=== PATIENT | female | born 1955 | race Caucasian/White ===

== ENCOUNTER → 2018-10-18 09:52 | Outpatient (CLI) | payer OTHER, SELFPAY | PROVIDERS: PCP Family Medicine; Visit Provider Physician Assistant | DX: J02.9 Acute pharyngitis, unspecified (principal) | CPT/HCPCS: 87070 ==

== ENCOUNTER → 2020-05-17 10:48 | Outpatient (CLI) | payer OTHER, SELFPAY ==
--- NOTE | 2020-05-17 10:50 | DI.RAD.S_ITS ---
PROCEDURE: XR ANKLE RT MIN 3V INDICATIONS: right ankle pain TECHNIQUE: 3 views of the ankle were acquired. COMPARISON: None. FINDINGS: Bones: There is a subtle transversely oriented lucency through the distal tip of the right fibula with moderate overlying soft tissue edema. No other fractures or dislocations. Ankle mortise is normally aligned. No suspicious bony lesions. Base of fifth metatarsal appears intact. Soft tissues: No tibiotalar joint effusion. Achilles tendon appears normal. IMPRESSION: Possible nondisplaced distal fibular fracture. Dictated by: Honorio Gasca M.D. on 05/17/2020 at 11:14 Approved by: Honorio Gasca M.D. on 05/17/2020 at 11:16
== END ==
PROVIDERS: Referring Provider Physician Assistant; Visit Provider Physician Assistant
DX: M25.571 Pain in right ankle and joints of right foot (principal)
CPT/HCPCS: 73610

== ENCOUNTER → 2021-08-12 10:01 | Outpatient (CLI) | payer MEDICARE, SELFPAY ==
[2021-08-12 11:48] LABS: COVID19 -Nasal RAPID Negative (Negative)
== END ==
PROVIDERS: Visit Provider Nurse Practitioner Family
DX: Z20.822 Contact with and (suspected) exposure to COVID-19 (principal)
CPT/HCPCS: 87635

== ENCOUNTER 2022-11-18 14:04 | Inpatient (IN) | payer MEDICARE, SELFPAY ==
[2022-11-18] VITALS (9 sets, daily range): BP systolic 115–155; BP diastolic 73–95; PULSE 80–93; RESP 12–23; TEMP 36.4–36.9; O2SAT 94–99; BMI 24.7
--- NOTE | 2022-11-18 14:15 | DI.RAD.S_ITS ---
PROCEDURE: XR CHEST 1V INDICATIONS: chest pain TECHNIQUE: One view of the chest was acquired. COMPARISON: None. FINDINGS: Surgical changes and devices: None. Lungs and pleura: Lungs are clear. No pleural effusions or pneumothorax. Mediastinum: Mediastinal contours appear normal. Heart size is normal. Bones and chest wall: No suspicious bony lesions. Overlying soft tissues appear unremarkable. IMPRESSION: No acute process. Dictated by: Ana Valadez M.D. on 11/18/2022 at 14:57 Approved by: Ana Valadez M.D. on 11/18/2022 at 14:57
[2022-11-18 14:42] LABS: Add Manual Diff / Slide Review NO; Basophils Absolute Auto 0 /uL (0-100); Basophils Percent Auto 0.7 % (0-2); Eosinophils Absolute Auto 0 /uL (0-450); Eosinophils Percent Auto 0.6 % (2-4); Hematocrit 38.9 % (36-46); Hemoglobin 12.8 g/dL (12.0-16.0); Lymphocytes Absolute Auto 2000 /uL (1100-4500); Lymphocytes Percent Auto 30.9 % (25-40); Mean Corpuscular HGB Conc 32.8 % (30-36); Mean Corpuscular Hemoglobin 29.1 PG (26-34); Mean Corpuscular Volume 88.7 fL (80-100); Monocytes Absolute Auto 400 /uL (0-900); Monocytes Percent Auto 6.5 % (3-14); Neutrophils Absolute Auto 4000 /uL (1500-7000); Neutrophils Percent Auto 61.3 % (50-75); Platelet Count 315 X10^3/uL (150-400); Red Blood Cell Count 4.38 X10^6/uL (4.0-5.2); Red Cell Distribution Width 14.2 % (11.6-14.8); White Blood Cell Count 6.6 X10^3/uL (4.5-11.0)
--- NOTE | 2022-11-18 14:45 | ED.CHESTPAIN ---
HPI - Chest Pain General Chief Complaint: Chest Pain Stated Complaint: chest pain squeezing Time Seen by Provider: 11/18/22 14:23 Source: patient Mode of arrival: Ambulatory Limitations: no limitations History of Present Illness HPI narrative: Patient is a 67-year-old female who is here for evaluation of epigastric and retrosternal chest squeezing discomfort. States the symptoms started earlier today after she took some vitamins. Said some nausea no vomiting. No problems breathing. No abdominal pain. She states that it feels like that the pills are stuck in the bottom of her throat. She is never had anything like this in the past. Does not have a history of reflux disease. Does not drink alcohol. Occasionally takes anti-inflammatories but nothing recent. Related Data Home Medications Medication Instructions Recorded Confirmed No Known Home Medications 05/26/22 05/26/22 Allergies Allergy/AdvReac Type Severity Reaction Status Date / Time No Known Drug Allergies Allergy Unverified 05/26/22 14:20 Review of Systems Cardiovascular Cardiovascular: Reports system reviewed and no additional complaints, except as documented Respiratory Respiratory: Reports system reviewed and no additional complaints, except as documented Gastrointestinal Gastrointestinal: Reports system reviewed and no additional complaints, except as documented Genitourinary Genitourinary: Reports system reviewed and no additional complaints, except as documented Integumentary/Breasts Skin/Breast: Reports system reviewed and no additional complaints, except as documented Hematologic/Lymphatic On Anticoagulants: No Patient History Social History Smoking Status: Never smoker Smoking Status: Never smoker Exam Initial Vital Signs Initial Vital Signs: Vital Signs Temperature 98.4 F 11/18/22 14:16 Pulse Rate 93 H 11/18/22 14:16 Respiratory Rate 16 11/18/22 14:16 Blood Pressure 155/95 H 11/18/22 14:16 Pulse Oximetry 96 11/18/22 14:16 Oxygen Delivery Method 11/18/22 14:16 Const General: cooperative, healthy appearing and comfortable [facility] Head: normal to inspection and normocephalic Resp Effort & Inspection: normal respiratory effort Auscultation: clear to auscultation bilaterally Cardio Rate: regular rate Rhythm: regular rhythm GI Inspection: normal to inspection and non-distended Palpation: soft, No firm and No tender Skin General: no rashes or lesions noted Neuro General: patient alert, patient awake and moves all extremities Extrem General: normal to inspection and capillary refill normal Psych Appearance: grossly normal and well kempt Course Orders Ordered: ED Orders 11/18/22 14:15 XR chest 1V Stat 11/18/22 14:19 EKG-12 Lead Stat 11/18/22 14:27 Complete Blood Count AUTO DIFF Stat Comprehensive Metabolic Panel Stat Lipase Stat Magnesium Stat Partial Thromboplastin Time Stat Prothrombin Time INR Stat Troponin & CK Cardiac Panel Stat 11/18/22 15:09 CT abdomen pelvis w con Stat 11/18/22 15:15 Type and Screen Stat 11/18/22 16:07 Consult to General Surgery Stat Discontinued Medications Al Hydrox/Mg Hydrox/Simethicone 20 ml/ Lidocaine HCl 15 ml 0 ml PO NOW ONE Stop: 11/18/22 14:47 Last Admin: 11/18/22 15:15 Dose: Not Given Documented By: TONEY Ondansetron HCl (Ondansetron 4 Mg/2 Ml Inj) 4 mg IV NOW ONE Stop: 11/18/22 15:10 Last Admin: 11/18/22 15:15 Dose: 4 mg Documented By: TONEY Pantoprazole Sodium (Pantoprazole 40 Mg Vial) 40 mg IV NOW ONE Stop: 11/18/22 15:10 Last Admin: 11/18/22 15:15 Dose: 40 mg Documented By: TONEY Vital Signs Vital signs: Vital Signs - 8 hr 11/18/22 14:16 11/18/22 15:46 11/18/22 15:49 Temperature 98.4 F Pulse Rate 93 H 86 84 Respiratory Rate 16 23 13 Blood Pressure 155/95 H Pulse Oximetry 96 99 98 Oxygen Delivery Method Room Air 11/18/22 15:49 11/18/22 16:00 11/18/22 16:00 Temperature Pulse Rate 84 Respiratory Rate 20 Blood Pressure 145/83 H 153/81 H Pulse Oximetry 97 Oxygen Delivery Method Room Air MDM - Chest Pain Differential Diagnosis Differential diagnosis: Likely other (Esophageal foreign body, ulcerations, Maddi-Phan tears, ACS) Condition is:: Well Controlled Discussed with:: Hospitalist, general surgeon Lab Data Attestation: I reviewed the patient's lab results. Result diagrams: 11/18/22 14:27 11/18/22 14:27 Labs: Lab Results 11/18/22 11/18/22 11/18/22 Range/Units 14:27 14:27 14:27 WBC 6.6 (4.5-11.0) X10^3/uL RBC 4.38 (4.0-5.2) X10^6/uL Hgb 12.8 (12.0-16.0) g/dL Hct 38.9 (36-46) % MCV 88.7 (80-100) fL MCH 29.1 (26-34) PG MCHC 32.8 (30-36) % RDW 14.2 (11.6-14.8) % Plt Count 315 (150-400) X10^3/uL Neut % (Auto) 61.3 (50-75) % Lymph % (Auto) 30.9 (25-40) % [place] % (Auto) 6.5 (3-14) % Eos % (Auto) 0.6 L (2-4) % Baso % (Auto) 0.7 (0-2) % Neut # (Auto) 4000 (3583-2196) /uL Lymph # (Auto) 2000 (8550-0653) /uL [place] # (Auto) 400 (0-900) /uL Eos # (Auto) 0 (0-450) /uL Baso # (Auto) 0 (0-100) /uL PT 11.9 (10.1-12.7) SECONDS INR 1.0 (0.9-1.3) APTT 28 (26-36) SECONDS Sodium 136 L (137-145) mmol/L Potassium 3.8 (3.4-5.1) mmol/L Chloride 100 (98-107) mmol/L Carbon Dioxide 25 (22-32) mmol/L BUN 8 (7-17) mg/dL Creatinine 0.56 (0.52-1.04) mg/dL Estimated GFR > 60 (>60) mL/min BUN/Creatinine Ratio 14.3 (6-22) Glucose 106 (80-110) mg/dL Calcium 8.8 (8.4-10.2) mg/dL Magnesium 1.9 (1.6-2.3) mg/dL Total Bilirubin 0.3 (0.2-1.3) mg/dL AST 25 (14-36) IU/L ALT 23 (<35) IU/L Alkaline Phosphatase 127 H (38-126) U/L Total Creatine Kinase 66 (30-135) U/L CK-MB (CK-2) TNP CK-MB (CK-2) Rel Index TNP Troponin I < 0.012 (0.01-0.034) ng/mL Total Protein 7.4 (6.3-8.2) g/dL Albumin 4.4 (3.5-5.0) g/dL Globulin 3.0 (1.7-4.1) g/dL Albumin/Globulin Ratio 1.5 (1.0-2.8) Lipase 75 (23-300) U/L Blood Type Antibody Screen 11/18/22 Range/Units 15:15 WBC (4.5-11.0) X10^3/uL RBC (4.0-5.2) X10^6/uL Hgb (12.0-16.0) g/dL Hct (36-46) % MCV (80-100) fL MCH (26-34) PG MCHC (30-36) % RDW (11.6-14.8) % Plt Count (150-400) X10^3/uL Neut % (Auto) (50-75) % Lymph % (Auto) (25-40) % [place] % (Auto) (3-14) % Eos % (Auto) (2-4) % Baso % (Auto) (0-2) % Neut # (Auto) (4144-7124) /uL Lymph # (Auto) (5527-3924) /uL [place] # (Auto) (0-900) /uL Eos # (Auto) (0-450) /uL Baso # (Auto) (0-100) /uL PT (10.1-12.7) SECONDS INR (0.9-1.3) APTT (26-36) SECONDS Sodium (137-145) mmol/L Potassium (3.4-5.1) mmol/L Chloride (98-107) mmol/L Carbon Dioxide (22-32) mmol/L BUN (7-17) mg/dL Creatinine (0.52-1.04) mg/dL Estimated GFR (>60) mL/min BUN/Creatinine Ratio (6-22) Glucose (80-110) mg/dL Calcium (8.4-10.2) mg/dL Magnesium (1.6-2.3) mg/dL Total Bilirubin (0.2-1.3) mg/dL AST (14-36) IU/L ALT (<35) IU/L Alkaline Phosphatase (38-126) U/L Total Creatine Kinase (30-135) U/L CK-MB (CK-2) CK-MB (CK-2) Rel Index Troponin I (0.01-0.034) ng/mL Total Protein (6.3-8.2) g/dL Albumin (3.5-5.0) g/dL Globulin (1.7-4.1) g/dL Albumin/Globulin Ratio (1.0-2.8) Lipase (23-300) U/L Blood Type O Positive Antibody Screen Negative Imaging Data Chest x-ray: Radiologist's Impression: [address] [address] XRay Report Signed Patient: Ammy Diane MR#: [id number] : 1955 Acct:[id number] Age/Sex: 67 / F Date of Service: 11/18/22 Loc: ED Accession Number: [id number] ?? Procedure: XR chest 1V Ordering Provider: Yariel Paige D.O. PROCEDURE:? XR CHEST 1V ? INDICATIONS:? chest pain ? TECHNIQUE:? One view of the chest was acquired.? ? COMPARISON:? None. ? FINDINGS:? ? Surgical changes and devices:? None.? ? Lungs and pleura:? Lungs are clear.? No pleural effusions or pneumothorax.? ? Mediastinum:? Mediastinal contours appear normal.? Heart size is normal.? ? Bones and chest wall:? No suspicious bony lesions.? Overlying soft tissues appear unremarkable.? ? IMPRESSION:? No acute process. ? ? Dictated by: Ana Valadez M.D. on 11/18/2022 at 14:57 ? ? Approved by: Ana Valadez M.D. on 11/18/2022 at 14:57?? CT scan - abdomen/pelvis: Radiologist's Impression: [address] [address] [address] Scan Report Signed Patient: Ammy Diane MR#: [id number] : 1955 Acct:[id number] Age/Sex: 67 / F Date of Service: 11/18/22 Loc: ED Accession Number: [id number] ?? Procedure: CT abdomen pelvis w con Ordering Provider: Yariel Paige D.O. PROCEDURE:? CT ABDOMEN PELVIS W CON ? INDICATIONS:? Vomiting blood ? TECHNIQUE:? After the administration of intravenous contrast, axial sections acquired from the lung bases to the pubic symphysis.? Coronal and sagittal reformats were performed.? For radiation dose reduction, the following was used:? automated exposure control, adjustment of mA and/or kV according to patient size.? ? COMPARISON:? None. ? FINDINGS:? Image quality:? Excellent.? ? Lung bases:? Unremarkable. Heart:? No significant findings. ? ABDOMEN: Liver:? Unremarkable.? ? Gallbladder:? Is grossly unremarkable? ? Biliary ducts:? Unremarkable.? ? Pancreas:? Unremarkable.? ? Spleen:? Unremarkable.? ? Adrenal Glands:? Unremarkable.? ? Kidneys and Ureters:? Unremarkable.? ? ? Stomach and Bowel:? There is moderate diffuse distension of the esophagus.? Stomach, small bowel loops, and colon are unremarkable.? Appendix is not seen.? No evidence of appendicitis. Peritoneum:? No abnormal intraperitoneal fluid.? No free air.? ? Ventral Wall: ? No hernias.? Abdominal Nodes:? No retroperitoneal or mesenteric adenopathy by size criteria.? Vessels:? Aorta and inferior vena cava are normal in size.? ? PELVIS: Pelvic Organs:? Unremarkable.? ? Bladder:? Unremarkable.? ? Pelvic Nodes: No enlarged lymph nodes.? Miscellaneous: No hernias are seen. ? ? ? Bones:? Unremarkable.? IMPRESSION:? 1. Esophageal distension.? Distal esophageal stricture/malignancy may be present.? Further assessment with endoscopy is recommended. 2. Appendix not seen.? No evidence of appendicitis.? ? ? Dictated by: Ana Valadez M.D. on 11/18/2022 at 15:38 ? ? Approved by: Ana Valadez M.D. on 11/18/2022 at 15:4 ECG Data Attestation: I personally reviewed and interpreted this ECG as follows: Interpretation: Sinus rhythm Ventricular rate 88 Normal axis Normal QRS Normal QTC Nonspecific ST T wave changes MDM Narrative Medical decision making narrative: Patient's symptoms seem to be localized retrosternally and also in the epigastric region. During her initial workup a GI cocktail was ordered for her however prior to administering this medication she did have an episode of hematemesis. It was bright red blood and also clots. She states she felt better afterwards but symptoms started to return. CT scan shows strictures of the distal esophagus. Patient denies any history of alcohol use. There are no signs of any varices. Only occasionally uses nonsteroidal anti-inflammatories. Is not on anticoagulation. She is not having problems breathing. The blood was clearly from vomit and not from coughing. Vital signs are unremarkable. Was given Protonix. I did discuss the case with Dr. Carranza with General surgery who recommended the patient be admitted to the medicine service for an upper endoscopy. I did discuss this with the patient who expressed understanding and agrees. I then discussed the case with Dr. Ram on-call for hospitalist group who will admit for further evaluation and treatment. Discharge Plan Departure Patient Disposition: Admitted as Observation Clinical Impression: Hematemesis Admit Date/Time: 11/18/22 16:20 Admit Provider: Bao Ram
[2022-11-18 14:47] LABS: Prothrombin Time 11.9 SECONDS (10.1-12.7)
[2022-11-18 14:49] LABS: PTT Partial Thromboplastin Tim 28 SECONDS (26-36)
[2022-11-18 14:51] LABS: Alanine Aminotransferase 23 IU/L (<35); Albumin 4.4 g/dL (3.5-5.0); Albumin Globulin Ratio 1.5 (1.0-2.8); Alkaline Phosphatase 127 U/L (38-126); Aspartate Aminotransferase 25 IU/L (14-36); BUN Creatinine Ratio 14.3 (6-22); Bilirubin Total 0.3 mg/dL (0.2-1.3); Blood Urea Nitrogen 8 mg/dL (7-17); Calcium 8.8 mg/dL (8.4-10.2); Carbon Dioxide 25 mmol/L (22-32); Chloride 100 mmol/L (98-107); Creatine Kinase 66 U/L (30-135); Estimated Glomerular Filt Rate > 60 mL/min (>60); Glucose 106 mg/dL (80-110); HEMOLYSIS 18 (0-50); Lipase 75 U/L (23-300); Magnesium 1.9 mg/dL (1.6-2.3); Potassium 3.8 mmol/L (3.4-5.1); Sodium 136 mmol/L (137-145); Total Protein 7.4 g/dL (6.3-8.2)
[2022-11-18 15:03] LABS: Troponin I < 0.012 ng/mL (0.01-0.034)
--- NOTE | 2022-11-18 15:09 | DI.CT.S_ITS ---
PROCEDURE: CT ABDOMEN PELVIS W CON INDICATIONS: Vomiting blood TECHNIQUE: After the administration of intravenous contrast, axial sections acquired from the lung bases to the pubic symphysis. Coronal and sagittal reformats were performed. For radiation dose reduction, the following was used: automated exposure control, adjustment of mA and/or kV according to patient size. COMPARISON: None. FINDINGS: Image quality: Excellent. Lung bases: Unremarkable. Heart: No significant findings. ABDOMEN: Liver: Unremarkable. Gallbladder: Is grossly unremarkable Biliary ducts: Unremarkable. Pancreas: Unremarkable. Spleen: Unremarkable. Adrenal Glands: Unremarkable. Kidneys and Ureters: Unremarkable. Stomach and Bowel: There is moderate diffuse distension of the esophagus. Stomach, small bowel loops, and colon are unremarkable. Appendix is not seen. No evidence of appendicitis. Peritoneum: No abnormal intraperitoneal fluid. No free air. Ventral Wall: No hernias. Abdominal Nodes: No retroperitoneal or mesenteric adenopathy by size criteria. Vessels: Aorta and inferior vena cava are normal in size. PELVIS: Pelvic Organs: Unremarkable. Bladder: Unremarkable. Pelvic Nodes: No enlarged lymph nodes. Miscellaneous: No hernias are seen. Bones: Unremarkable. IMPRESSION: 1. Esophageal distension. Distal esophageal stricture/malignancy may be present. Further assessment with endoscopy is recommended. 2. Appendix not seen. No evidence of appendicitis. Dictated by: Ana Valadez M.D. on 11/18/2022 at 15:38 Approved by: Ana Valadez M.D. on 11/18/2022 at 15:40
[2022-11-18] MEDS: PANTOPRAZOLE 40 MG VIAL IV ×2 (15:15→20:46)
[2022-11-18] MEDS: ONDANSETRON 4 MG/2 ML INJ IV (15:15)
--- NOTE | 2022-11-18 15:16 | PC.NURSE ---
1510: Pts over to RN station reporting that pt nauseated. When at pt's bedside pt started with large amount of bloody emesis. Dr Paige to bedside. Pt moved to rm 7. 2nd IV placed and pt T&S'd and taken to CT.
--- NOTE | 2022-11-18 17:09 | PM.HP.1 ---
History of Present Illness History of Present Illness Date Patient Seen: 11/18/22 Time Patient Seen: 16:30 Chief complaint: chest pain squeezing Narrative: Ms. Malik is a 67W with no significant PMH, on no medications who presents with chest pain after feeling after something became stuck in her lower esophagus earlier today. She states she often has some difficulty with swallowing pills with liquids, so she usually takes this with oatmeal. Decades ago she ate rice that was very hot and she needed to undergo a scope, which she does not have the results of. Since then she has done well. She has not noted any weight loss. She does not have issues with reflux. Today after swallowing vitamin C pills she felt as if they got stuck towards the lower part of her esophagus, she thought she didn't drink enough liquids. She began developed tight chest pain over the course of the day and then developed vomiting. She did not vomit up the pills. In the ED workup was done, vitals notable for afebrile, heart rat ein the 90s, blood pressure systolic 150s. Labs notable for WBC 6.6, hgb 12.8, plts 315. INR 1.0. Na 136, creatinine 0.56. Trop negative. Lipase negative. Chest xray with no acute process. CT abdomen/pelvis with esophageal distention. While in the ED she had an episode of vomiting with bright red blood noticed. She was ordered for protonix and type and screen. She denied shortness of breath, she continues to have off and on epigastric pain, she can swallow liquids she says but it hurts when she swallow. Family history: no GERD, GI cancers, esophageal history Social history: no smoking, alcohol use Patient History Family & Social History Safety & Behavioral: Feels Safe in Current Yes Environment Been Physically Hurt or No Threatened By a Person Tobacco & Substance use: Smoking Status Never smoker Meds Home Medications and Allergies Home Medications Medication Instructions Recorded Confirmed Type No Known Home Medications 05/26/22 05/26/22 History Allergies Allergy/AdvReac Type Severity Reaction Status Date / Time No Known Drug Allergies Allergy Unverified 05/26/22 14:20 Review of Systems Review of Systems Narrative: 14 systems reviewed and negative aside from what is noted in HPI Exam Vital Signs (past 8 hours): - 11/18/22 14:16 11/18/22 15:46 11/18/22 15:49 Temperature 98.4 F Pulse Rate 93 H 86 84 Respiratory Rate 16 23 13 Blood Pressure 155/95 H Pulse Oximetry 96 99 98 Oxygen Delivery Method Room Air 11/18/22 15:49 11/18/22 16:00 11/18/22 16:00 Temperature Pulse Rate 84 Respiratory Rate 20 Blood Pressure 145/83 H 153/81 H Pulse Oximetry 97 Oxygen Delivery Method Room Air 11/18/22 16:30 11/18/22 16:30 Temperature Pulse Rate 86 Respiratory Rate 12 Blood Pressure 143/80 H Pulse Oximetry 95 Oxygen Delivery Method Oxygen Delivery Method Room Air Narrative Exam Narrative: GEN: no acute distress HEENT: moist mucous membranes, PERRL NECK: trachea midline, no JVD Chest: no crepitus PULM: clear bilaterally, no wheezes, rhonchi, rales CV: regular rate and rhythm, no murmurs ABD: soft, nontender, nondistended, no organomegaly EXT: warm and well perfused with no edema NEURO: awake, alert, oriented, no focal deficits Objective Labs Result Diagrams: 11/18/22 14:27 11/18/22 14:27 Labs: Laboratory Results - last 24 hr 11/18/22 11/18/22 11/18/22 14:27 14:27 14:27 WBC 6.6 RBC 4.38 Hgb 12.8 Hct 38.9 MCV 88.7 MCH 29.1 MCHC 32.8 RDW 14.2 Plt Count 315 Neut % (Auto) 61.3 Lymph % (Auto) 30.9 [place] % (Auto) 6.5 Eos % (Auto) 0.6 L Baso % (Auto) 0.7 Neut # (Auto) 4000 Lymph # (Auto) 2000 [place] # (Auto) 400 Eos # (Auto) 0 Baso # (Auto) 0 PT 11.9 INR 1.0 APTT 28 Sodium 136 L Potassium 3.8 Chloride 100 Carbon Dioxide 25 BUN 8 Creatinine 0.56 Estimated GFR > 60 BUN/Creatinine Ratio 14.3 Glucose 106 Calcium 8.8 Magnesium 1.9 Total Bilirubin 0.3 AST 25 ALT 23 Alkaline Phosphatase 127 H Total Creatine Kinase 66 CK-MB (CK-2) TNP CK-MB (CK-2) Rel Index TNP Troponin I < 0.012 Total Protein 7.4 Albumin 4.4 Globulin 3.0 Albumin/Globulin Ratio 1.5 Lipase 75 Blood Type Antibody Screen 11/18/22 15:15 WBC RBC Hgb Hct MCV MCH MCHC RDW Plt Count Neut % (Auto) Lymph % (Auto) [place] % (Auto) Eos % (Auto) Baso % (Auto) Neut # (Auto) Lymph # (Auto) [place] # (Auto) Eos # (Auto) Baso # (Auto) PT INR APTT Sodium Potassium Chloride Carbon Dioxide BUN Creatinine Estimated GFR BUN/Creatinine Ratio Glucose Calcium Magnesium Total Bilirubin AST ALT Alkaline Phosphatase Total Creatine Kinase CK-MB (CK-2) CK-MB (CK-2) Rel Index Troponin I Total Protein Albumin Globulin Albumin/Globulin Ratio Lipase Blood Type O Positive Antibody Screen Negative Assessment & Plan Assessment & Plan narrative: 1. Hematemesis and espophageal dilation -etiology could be secondary to pill esophagitis, gerd, malignancy with possible humble rand tear -no evidence of crepitus on exam -vitals on admission with no tachycardia and normal blood pressure -CT shows evidence of esophageal dilation distally -ordered for IV protonix -recheck hemoglobin now to see if a significant drop -order morphine for pain control -NPO ordered -plan for EGD tomorrow I have personally reviewed the chest xray and CT abdomen. I discussed the patient's care with the ED physician and the patient's spouse at bedside provided additional information. She is admitted to observation due to concern for worsening given the hematemesis. Time Spent With Patient Critical Care time: I spent a total of [] minutes of critical care time on this patient's care today; this time is exclusive of procedural time. Quality [facility] - Meds 'Current medications' to include all prescriptions, [id number] products, herbals, cannabis/cannabidiol products, and vitamin/mineral/dietary (nutritional) supplements. I have utilized all available resources to obtain, update, or review the patient?s current medications. [If Yes, STOP here]: Yes
[2022-11-18 18:04] LABS: COVID19 -Nasal RAPID Negative (Negative)
[2022-11-18] MEDS: SODIUM CHLORIDE 0.9% 1,000 ML 100 ML IV (18:30)
[2022-11-18] MEDS: MORPHINE 2 MG/ML INJ IV ×2 (19:16→23:15)
[2022-11-18 19:45] LABS: Hematocrit 36.9 % (36-46); Hemoglobin 12.1 g/dL (12.0-16.0); Mean Corpuscular HGB Conc 32.9 % (30-36); Mean Corpuscular Hemoglobin 28.9 PG (26-34); Mean Corpuscular Volume 87.9 fL (80-100); Platelet Count 273 X10^3/uL (150-400); Red Blood Cell Count 4.19 X10^6/uL (4.0-5.2); Red Cell Distribution Width 14.3 % (11.6-14.8); White Blood Cell Count 14.5 X10^3/uL (4.5-11.0)
[2022-11-18] MEDS: SODIUM CHLORIDE 0.9% FLUSH 10 ML IV (20:46)
[2022-11-19] VITALS (12 sets, daily range): BP systolic 98–150; BP diastolic 56–95; PULSE 65–105; RESP 14–20; TEMP 36.1–36.9; O2SAT 94–99; BMI 24.7
--- NOTE | 2022-11-19 | PATH_ITS ---
[facility] Accession Number: [id number] No. of containers..01 Tissue . 01 Material submitted: . stomach - ANTRUM . 01 Clinical history: . A: FOR H. PYLORI . 01 Diagnosis: A. Stomach, Antrum, Biopsy: Antral mucosa with mild chronic gastritis and focal intestinal metaplasia. Negative for Helicobacter by immunohistochemistry. Negative for dysplasia and malignancy. [facility] 11/24/2022 1711 Local . 01 Electronically signed: . Isela Varghese MD, Pathologist NPI- [id number] . 01 Gross description: . ANTRUM: Received in formalin is 1 fragment(s) of oliveros, soft tissue measuring 0.3 x 0.2 x 0.2 cm submitted entirely in 1 cassette(s) /CPE 11/20/2022 0614 Local . 01 Microscopic: . A. An immunohistochemical stain was performed to evaluate for Helicobacter organisms and is negative. The control stain showed appropriate reactivity. . 01 Pathologist provided ICD-10: R10.9 . 01 CPT . 029817, [id number] Specimen Comment: A courtesy copy of this report has been sent to [phone] Performed at: 01 [facility] [address] [place] [address] [address], [place], [place] [id number] MD Dallin Arndt MD Phone: [phone]
--- NOTE | 2022-11-19 00:35 | PC.NURSE ---
Patient is alert and oriented. At time of assessment stated she was starting to get an ocular migraine but symptoms resolved. Breath sounds CTA with RA sat of 94%. HRR. Denied nausea. BT present and abdomen soft. Denied dysuria, frequency or urgency with urination. Is able to turn herself in bed. Provided SBA when out of bed related to history of falls but seems to be steady on her feet and denied any weakness. Had bilateral calf SCD's on but requested they be removed when she got up to bathroom at 0000. Complained of mid chest pain without radiation. States pain feels like a cramping pain and comes in waves. Medicated for pain at 1916 with good results and medicated again at 2315 and is currently asleep. Is NPO except for meds as plan is for EGD later today. Fall risk score is moderate but patient is calling appropriately for assistance so alarm is not currently activated.
[2022-11-19] MEDS: SODIUM CHLORIDE 0.9% 1,000 ML 100 ML IV ×2 (03:13→12:57)
[2022-11-19 08:04] LABS: Add Manual Diff / Slide Review NO; Basophils Absolute Auto 0 /uL (0-100); Basophils Percent Auto 0.2 % (0-2); Eosinophils Absolute Auto 0 /uL (0-450); Eosinophils Percent Auto 0.4 % (2-4); Hemoglobin 11.8 g/dL (12.0-16.0); Lymphocytes Absolute Auto 1400 /uL (1100-4500); Lymphocytes Percent Auto 20.8 % (25-40); Mean Corpuscular HGB Conc 34.6 % (30-36); Mean Corpuscular Hemoglobin 30.2 PG (26-34); Mean Corpuscular Volume 87.3 fL (80-100); Monocytes Absolute Auto 400 /uL (0-900); Monocytes Percent Auto 6.7 % (3-14); Neutrophils Absolute Auto 4700 /uL (1500-7000); Neutrophils Percent Auto 71.9 % (50-75); Platelet Count 250 X10^3/uL (150-400); Red Blood Cell Count 3.89 X10^6/uL (4.0-5.2); Red Cell Distribution Width 14.1 % (11.6-14.8); White Blood Cell Count 6.6 X10^3/uL (4.5-11.0)
[2022-11-19] MEDS: SODIUM CHLORIDE 0.9% FLUSH 10 ML IV (08:36)
[2022-11-19] MEDS: PANTOPRAZOLE 40 MG VIAL IV (08:36)
[2022-11-19 08:45] LABS: BUN Creatinine Ratio 16.9 (6-22); Blood Urea Nitrogen 10 mg/dL (7-17); Calcium 8.3 mg/dL (8.4-10.2); Carbon Dioxide 25 mmol/L (22-32); Chloride 106 mmol/L (98-107); Estimated Glomerular Filt Rate > 60 mL/min (>60); Glucose 78 mg/dL (80-110); HEMOLYSIS < 15 (0-50); Potassium 3.7 mmol/L (3.4-5.1); Sodium 141 mmol/L (137-145)
--- NOTE | 2022-11-19 09:27 | CM.DANOTE ---
Initial DCP Assessment Note Pt is a 67 yo female, resident of [place], presents to the ER after swallowing her vitamins which didn't go down right now with pain and secretion build up. Patient admitted observation for work up; NPO in preparation for EGD scheduled this afternoon 1415 PCP: Not listed Payer: ANDREW/DELMAP Reviewed chart, No barriers identified at this time to patient's safe discharge home w/family to assist once medically cleared to do so; this CM team will plan to follow closely as it is still early in the medical POC LEATHA Conn Discharge Planning/Care Management CM Discharge Assessment Start: 11/19/22 09:23 Freq: Status: Active Protocol: Document 11/19/22 09:24 SHAVON (Rec: 11/19/22 09:27 SHAVON [email or web address]) Discharge Planning Assessment Assigned Marketing Intelligence Manager Margarita Gamez/Assigned Designee Name Garo Diane, spouse Contact Information [phone] or [phone] Advance Directives? Yes Advance Directives on File No History Provided By Patient,Medical Record Has Patient been admitted in last 30 No days? Prior Living Arrangements House Household Members spouse Type of transporation used prior to Drives own vehicle admit Independent with ADL's Yes Is patient alert and oriented? Yes Barriers to Discharge No Comment None identified at this time, however it's early in medical POC Discharge Plan Home Transportation Arrangement Spouse Referrals Initiated None needed Additional Comment At this time
[2022-11-19] MEDS: MORPHINE 2 MG/ML INJ IV (11:39)
--- NOTE | 2022-11-19 12:30 | PM.PN.1 ---
Subjective Subjective Date Patient Seen: 11/19/22 Time Patient Seen: 08:00 Interval history: She continues to have pain with swallowing. She has not had any further vomiting, no further hematemesis. Exam Vital Signs (past 8 hours): - 11/19/22 07:38 11/19/22 10:00 Temperature 97.1 F L Pulse Rate 73 Respiratory Rate 14 Blood Pressure 98/56 L Pulse Oximetry 97 97 Oxygen Delivery Method Room Air Oxygen Flow Rate 0 0 Oxygen Delivery Method Room Air Oxygen Flow Rate 0 Narrative Exam Narrative: GEN: no acute distress HEENT: moist mucous membranes, PERRL NECK: trachea midline, no JVD Chest: no crepitus PULM: clear bilaterally, no wheezes, rhonchi, rales CV: regular rate and rhythm, no murmurs ABD: soft, nontender, nondistended, no organomegaly EXT: warm and well perfused with no edema NEURO: awake, alert, oriented, no focal deficits Objective Labs Result Diagrams: 11/19/22 05:58 11/19/22 05:58 Labs: Laboratory Results - last 24 hr 11/18/22 11/18/22 11/18/22 14:27 14:27 14:27 WBC 6.6 RBC 4.38 Hgb 12.8 Hct 38.9 MCV 88.7 MCH 29.1 MCHC 32.8 RDW 14.2 Plt Count 315 Neut % (Auto) 61.3 Lymph % (Auto) 30.9 [place] % (Auto) 6.5 Eos % (Auto) 0.6 L Baso % (Auto) 0.7 Neut # (Auto) 4000 Lymph # (Auto) 2000 [place] # (Auto) 400 Eos # (Auto) 0 Baso # (Auto) 0 PT 11.9 INR 1.0 APTT 28 Sodium 136 L Potassium 3.8 Chloride 100 Carbon Dioxide 25 BUN 8 Creatinine 0.56 Estimated GFR > 60 BUN/Creatinine Ratio 14.3 Glucose 106 Calcium 8.8 Magnesium 1.9 Total Bilirubin 0.3 AST 25 ALT 23 Alkaline Phosphatase 127 H Total Creatine Kinase 66 CK-MB (CK-2) TNP CK-MB (CK-2) Rel Index TNP Troponin I < 0.012 Total Protein 7.4 Albumin 4.4 Globulin 3.0 Albumin/Globulin Ratio 1.5 Lipase 75 SARS-CoV-2 (PCR) Blood Type Antibody Screen 0111/18/22 11/18/22 15:15 17:31 19:35 WBC 14.5 H D RBC 4.19 Hgb 12.1 Hct 36.9 MCV 87.9 MCH 28.9 MCHC 32.9 RDW 14.3 Plt Count 273 Neut % (Auto) Lymph % (Auto) [place] % (Auto) Eos % (Auto) Baso % (Auto) Neut # (Auto) Lymph # (Auto) [place] # (Auto) Eos # (Auto) Baso # (Auto) PT INR APTT Sodium Potassium Chloride Carbon Dioxide BUN Creatinine Estimated GFR BUN/Creatinine Ratio Glucose Calcium Magnesium Total Bilirubin AST ALT Alkaline Phosphatase Total Creatine Kinase CK-MB (CK-2) CK-MB (CK-2) Rel Index Troponin I Total Protein Albumin Globulin Albumin/Globulin Ratio Lipase SARS-CoV-2 (PCR) Negative Blood Type O Positive Antibody Screen Negative 11/19/22 11/19/22 05:58 05:58 WBC 6.6 D RBC 3.89 L Hgb 11.8 L Hct 34.0 L MCV 87.3 MCH 30.2 MCHC 34.6 RDW 14.1 Plt Count 250 Neut % (Auto) 71.9 Lymph % (Auto) 20.8 L [place] % (Auto) 6.7 Eos % (Auto) 0.4 L Baso % (Auto) 0.2 Neut # (Auto) 4700 Lymph # (Auto) 1400 [place] # (Auto) 400 Eos # (Auto) 0 Baso # (Auto) 0 PT INR APTT Sodium 141 Potassium 3.7 Chloride 106 Carbon Dioxide 25 BUN 10 Creatinine 0.59 Estimated GFR > 60 BUN/Creatinine Ratio 16.9 Glucose 78 L Calcium 8.3 L Magnesium Total Bilirubin AST ALT Alkaline Phosphatase Total Creatine Kinase CK-MB (CK-2) CK-MB (CK-2) Rel Index Troponin I Total Protein Albumin Globulin Albumin/Globulin Ratio Lipase SARS-CoV-2 (PCR) Blood Type Antibody Screen [facility] Social History household members: spouse Smoking Status: Never smoker alcohol intake: never Assessment & Plan Assessment & Plan narrative: 1. Hematemesis and espophageal dilation -etiology could be secondary to pill esophagitis, gerd, malignancy with possible humble rand tear -no evidence of crepitus on exam -vitals on admission with no tachycardia and normal blood pressure -CT shows evidence of esophageal dilation distally -ordered for IV protonix -repeat hemoglobin does not show a significant drop, no further hematemesis since admission -order morphine for pain control -NPO ordered -plan for EGD today I have personally reviewed the chest xray and CT abdomen. I discussed the patient's care with the ED physician and the patient's spouse at bedside provided additional information. She is admitted to observation due to concern for worsening given the hematemesis. Time Spent With Patient Critical Care time: I spent a total of [] minutes of critical care time on this patient's care today; this time is exclusive of procedural time. Quality VTE Deep Vein Thrombosis/Pulmonary Embolism Present on Admission: No
--- NOTE | 2022-11-19 13:16 | PM.CN ---
History of Present Illness Consult details Date Patient Seen: 11/19/22 Time Patient Seen: 13:16 Chief complaint: chest pain squeezing Reason for consult: dilated esophagus, dysphagia Requesting provider: Bao Ram Narrative: Presented at ED with persistent pain in midepigastrium and unable to eat or drink. Had taken vitamins early and feels that they were stuck. Had a bloody emesis that relieved symptoms. Continued to not tolerate fluid. CT scan confirms dilated esophagus c/w distal obstruction. No recent unexpected weight loss. H/o esophageal stricture that was dilated. Meds Home Medications and Allergies Home Medications Medication Instructions Recorded Confirmed Type No Known Home Medications 05/26/22 11/18/22 History Allergies Allergy/AdvReac Type Severity Reaction Status Date / Time No Known Drug Allergies Allergy Unverified 05/26/22 14:20 Review of Systems Review of Systems ROS: Yes All systems reviewed with the patient and are negative except as otherwise documented Exam Vital Signs (past 8 hours): - 11/19/22 07:38 11/19/22 10:00 Temperature 97.1 F L Pulse Rate 73 Respiratory Rate 14 Blood Pressure 98/56 L Pulse Oximetry 97 97 Oxygen Delivery Method Room Air Oxygen Flow Rate 0 0 Oxygen Delivery Method Room Air Oxygen Flow Rate 0 Const General: cooperative, healthy appearing and comfortable Nutritional Appearance: average body habitus HENMT Head: normocephalic and atraumatic Eyes General: appearance normal, both eyes and all related structures Sclera: sclerae normal Neck Neck: trachea midline Chest Chest: normal inspection of the chest Resp Effort & Inspection: normal respiratory effort and able to speak in complete sentences Cardio Rate: regular rate Rhythm: regular rhythm GI Inspection: normal to inspection Palpation: soft Skin General: turgor normal Neuro General: patient alert, patient awake and patient oriented x3 Cranial Nerves: tongue midline Extrem General: full ROM Psych Appearance: grossly normal Mental Status: mental status grossly normal Attitude: cooperative Judgment: judgment good Objective Labs Result Diagrams: 11/19/22 05:58 11/19/22 05:58 Labs: Laboratory Results - last 24 hr 11/18/22 11/18/22 11/18/22 14:27 14:27 14:27 WBC 6.6 RBC 4.38 Hgb 12.8 Hct 38.9 MCV 88.7 MCH 29.1 MCHC 32.8 RDW 14.2 Plt Count 315 Neut % (Auto) 61.3 Lymph % (Auto) 30.9 [place] % (Auto) 6.5 Eos % (Auto) 0.6 L Baso % (Auto) 0.7 Neut # (Auto) 4000 Lymph # (Auto) 2000 [place] # (Auto) 400 Eos # (Auto) 0 Baso # (Auto) 0 PT 11.9 INR 1.0 APTT 28 Sodium 136 L Potassium 3.8 Chloride 100 Carbon Dioxide 25 BUN 8 Creatinine 0.56 Estimated GFR > 60 BUN/Creatinine Ratio 14.3 Glucose 106 Calcium 8.8 Magnesium 1.9 Total Bilirubin 0.3 AST 25 ALT 23 Alkaline Phosphatase 127 H Total Creatine Kinase 66 CK-MB (CK-2) TNP CK-MB (CK-2) Rel Index TNP Troponin I < 0.012 Total Protein 7.4 Albumin 4.4 Globulin 3.0 Albumin/Globulin Ratio 1.5 Lipase 75 SARS-CoV-2 (PCR) Blood Type Antibody Screen 11/18/22 11/18/22 11/18/22 15:15 17:31 19:35 WBC 14.5 H D RBC 4.19 Hgb 12.1 Hct 36.9 MCV 87.9 MCH 28.9 MCHC 32.9 RDW 14.3 Plt Count 273 Neut % (Auto) Lymph % (Auto) [place] % (Auto) Eos % (Auto) Baso % (Auto) Neut # (Auto) Lymph # (Auto) [place] # (Auto) Eos # (Auto) Baso # (Auto) PT INR APTT Sodium Potassium Chloride Carbon Dioxide BUN Creatinine Estimated GFR BUN/Creatinine Ratio Glucose Calcium Magnesium Total Bilirubin AST ALT Alkaline Phosphatase Total Creatine Kinase CK-MB (CK-2) CK-MB (CK-2) Rel Index Troponin I Total Protein Albumin Globulin Albumin/Globulin Ratio Lipase SARS-CoV-2 (PCR) Negative Blood Type O Positive Antibody Screen Negative 11/19/22 11/19/22 05:58 05:58 WBC 6.6 D RBC 3.89 L Hgb 11.8 L Hct 34.0 L MCV 87.3 MCH 30.2 MCHC 34.6 RDW 14.1 Plt Count 250 Neut % (Auto) 71.9 Lymph % (Auto) 20.8 L [place] % (Auto) 6.7 Eos % (Auto) 0.4 L Baso % (Auto) 0.2 Neut # (Auto) 4700 Lymph # (Auto) 1400 [place] # (Auto) 400 Eos # (Auto) 0 Baso # (Auto) 0 PT INR APTT Sodium 141 Potassium 3.7 Chloride 106 Carbon Dioxide 25 BUN 10 Creatinine 0.59 Estimated GFR > 60 BUN/Creatinine Ratio 16.9 Glucose 78 L Calcium 8.3 L Magnesium Total Bilirubin AST ALT Alkaline Phosphatase Total Creatine Kinase CK-MB (CK-2) CK-MB (CK-2) Rel Index Troponin I Total Protein Albumin Globulin Albumin/Globulin Ratio Lipase SARS-CoV-2 (PCR) Blood Type Antibody Screen [facility] Social History household members: spouse Tobacco & Substance Use Smoking Status: Never smoker alcohol intake: never Assessment & Plan Assessment & Plan narrative: Esophageal dysphagia Plan: EGD with biopsy vs dilation COVID-19 COVID-19 status: Negative Time Spent With Patient Critical Care time: I spent a total of [] minutes of critical care time on this patient's care today; this time is exclusive of procedural time.
[2022-11-19] MEDS: LACTATED RINGERS 1,000 ML 42 ML IV (14:20)
--- NOTE | 2022-11-19 15:10 | PM.OP.EGD ---
Operative Date/Time/Diagnoses Date of procedure: 11/19/22 Time of procedure: 15:11 Pre-op diagnosis: dysphagia Post-op diagnosis: same Procedure & Clinicians Study performed: EGD with biopsy Same procedure as scheduled: Yes Indications: dysphagia Surgeon: Dulce Carranza Procedure Notes Procedure in detail: Preop diagnosis: Bloody emesis, dysphagia Postop diagnosis: Same Operative procedure: EGD with biopsy Surgeon: Kelsie Carranza MD Anesthetic: Mac Findings: Approximately a 2 cm superficial ulcer in the fundus of the stomach with mild oozing. Gastritis and gastric erosions. Duodenitis with duodenal erosions. Esophagus shows distal scarring and a frozen GE junction but no obvious masses. Biopsy taken in the pre-pyloric position for H pylori Procedure: Patient placed in a supine position. Scope inserted into the esophagus advanced to the stomach I identified the pylorus intubated into the duodenum. Insufflation extraction scope including retroflex had the above findings. Cold forceps biopsies were taken of the antral area for H pylori. Impression: 2 cm superficial gastric ulcer in the fundus of the stomach. Gastric erosions and gastritis. Duodenal erosions and duodenitis. No overt masses seen. No distal esophageal stricture in need of dilation. Plan: Ppi b.i.d. for 8 weeks with follow-up with primary care physician. Findings: gastric ulcer and gastritis Specimen(s): other (Pyloric biopsies) Complications: none Impression: Gastric ulcer, gastritis, gastric erosions. Duodenitis, duodenal erosions. No masses. No significant distal esophageal stricture in need of dilation Post-procedure Recommendations: EDG in 6-8 weeks Follow up: as needed Disposition: PACU
--- NOTE | 2022-11-19 16:11 | P.DS_ITS ---
History of Present Illness History of Present Illness Chief complaint: chest pain squeezing Narrative: Ms. Malik is a 67W with no significant PMH, on no medications who presents with chest pain after feeling after something became stuck in her lower esophagus earlier today. She states she often has some difficulty with swallowing pills with liquids, so she usually takes this with oatmeal. Decades ago she ate rice that was very hot and she needed to undergo a scope, which she does not have the results of. Since then she has done well. She has not noted any weight loss. She does not have issues with reflux. Today after swallowing vitamin C pills she felt as if they got stuck towards the lower part of her esophagus, she thought she didn't drink enough liquids. She began developed tight chest pain over the course of the day and then developed vomiting. She did not vomit up the pills. In the ED workup was done, vitals notable for afebrile, heart rat ein the 90s, blood pressure systolic 150s. Labs notable for WBC 6.6, hgb 12.8, plts 315. INR 1.0. Na 136, creatinine 0.56. Trop negative. Lipase negative. Chest xray with no acute process. CT abdomen/pelvis with esophageal distention. While in the ED she had an episode of vomiting with bright red blood noticed. She was ordered for protonix and type and screen. She denied shortness of breath, she continues to have off and on epigastric pain, she can swallow liquids she says but it hurts when she swallow. Family history: no GERD, GI cancers, esophageal history Social history: no smoking, alcohol use Discharge Providers Provider Date of admission: 11/18/22 16:20 Discharge Date: 11/19/22 Primary care physician: Doctor Jhonny MD Consults: 11/18/22 16:07 Consult to General Surgery Stat Comment: Consulting Provider: Dulce Carranza Reason for consultation: Hematemesis Has provider been notified: Yes Discharge provider: Filiberto Martin MD Summary Hospital Course Discharge Diagnosis: 1. Gastric ulcer, duodenal ulcer with bleeding 2. Dilated esophagus Hospital Course: Ms. Diane was admitted to the hospital after her episode of vomiting with hematemesis. She had noted esophageal dysphagia. CT showed dilated esophagus. She was started on PPI. She did undergo EGD which showed stomach ulcers with mild oozing after biopsies. She had gastritis, duodenitis. She had noted distal esophageal scarring and reportedly a frozen GE junction. She was able to swallow liquids and solids. She was able to be discharged home on protonix BID with plan for 6-8 weeks. She had biopsies taken and should follow up with Dr. Carranza about this. She is recommended to have repeat EGD in 6-8 weeks. She should follow up with PCP within one week Exam Vital Signs (past 8 hours): - 11/19/22 10:00 11/19/22 14:00 11/19/22 14:11 Temperature 97.1 F L Pulse Rate 73 Respiratory Rate 20 Blood Pressure 137/80 Pulse Oximetry 97 97 98 Oxygen Delivery Method Room Air Room Air Room Air Oxygen Flow Rate 0 0 11/19/22 15:05 11/19/22 15:10 11/19/22 15:18 Temperature 98.5 F 98.2 F Pulse Rate 102 H 105 H 105 H Respiratory Rate 16 16 14 Blood Pressure 137/82 138/91 H 142/95 H Pulse Oximetry 94 97 96 Oxygen Delivery Method Room Air Room Air Room Air Oxygen Flow Rate Oxygen Delivery Method Room Air Oxygen Flow Rate 0 Narrative Exam Narrative: GEN: no acute distress PULM: clear bilaterally, no wheezes, rhonchi, rales CV: regular rate and rhythm, no murmurs ABD: soft, nontender, nondistended, no organomegaly Objective Labs Result Diagrams: 11/19/22 05:58 11/19/22 05:58 Labs: Laboratory Results - last 24 hr 11/18/22 11/18/22 11/18/22 15:15 17:31 19:35 WBC 14.5 H D RBC 4.19 Hgb 12.1 Hct 36.9 MCV 87.9 MCH 28.9 MCHC 32.9 RDW 14.3 Plt Count 273 Neut % (Auto) Lymph % (Auto) [place] % (Auto) Eos % (Auto) Baso % (Auto) Neut # (Auto) Lymph # (Auto) [place] # (Auto) Eos # (Auto) Baso # (Auto) Sodium Potassium Chloride Carbon Dioxide BUN Creatinine Estimated GFR BUN/Creatinine Ratio Glucose Calcium SARS-CoV-2 (PCR) Negative Blood Type O Positive Antibody Screen Negative 11/19/22 11/19/22 05:58 05:58 WBC 6.6 D RBC 3.89 L Hgb 11.8 L Hct 34.0 L MCV 87.3 MCH 30.2 MCHC 34.6 RDW 14.1 Plt Count 250 Neut % (Auto) 71.9 Lymph % (Auto) 20.8 L [place] % (Auto) 6.7 Eos % (Auto) 0.4 L Baso % (Auto) 0.2 Neut # (Auto) 4700 Lymph # (Auto) 1400 [place] # (Auto) 400 Eos # (Auto) 0 Baso # (Auto) 0 Sodium 141 Potassium 3.7 Chloride 106 Carbon Dioxide 25 BUN 10 Creatinine 0.59 Estimated GFR > 60 BUN/Creatinine Ratio 16.9 Glucose 78 L Calcium 8.3 L SARS-CoV-2 (PCR) Blood Type Antibody Screen [facility] Social History household members: spouse Smoking Status: Never smoker alcohol intake: never Discharge Plan Discharge Plan Patient Disposition: Home Provider Discharge Comment: Ms. Diane came in to the hospital with chest discomfort after swallowing pills. She vomited blood. She had ulcers in her stomach and some irritation and scarring in her esophagus. She had biopsies oliva en and should follow up with Dr. Carranza, surgeon about this. She should have a repeat EGD in 6-8 weeks. Discharge orders & Medications Prescriptions: New pantoprazole [Protonix] 40 mg tablet,delayed release (DR/EC) 40 mg PO BID Qty: 60 0RF Follow up/Referrals: Dulce Carranza MD [Physician] - 2 Weeks (EGD with peptic ulcers, s/p biopsy) Doctor Barry MD [Primary Care Provider] - Diet/Activity/Treatments Diet: Regular Visit Report/Discharge Packet Instructions: DI for Gastric Ulcer Stand Alone Forms: Patient Portal/API, Stroke Signs & Symptoms Discharge Data Primary Care Provider: JhonnyDoctor Quality VTE Deep Vein Thrombosis/Pulmonary Embolism Present on Admission: No
== END 2022-11-19 17:02 | disposition home or self-care (01) | DRG 379 ==
LOC: ED 16:20 → AC 11-19 06:46
PROVIDERS: Internal Medicine; Surgery; Admitting Provider Student in an Organized Health Care Education/Training Program; Emergency Provider Emergency Medicine; Referring Provider Emergency Medicine; Visit Provider Student in an Organized Health Care Education/Training Program
PROC: 0DJ08ZZ Inspection of Upper Intestinal Tract, Via Natural or Artificial Opening Endoscopic (ICD-10-PCS; CPT 43235; principal; 2022-11-19 14:15)
DX: K26.4 Chronic or unspecified duodenal ulcer with hemorrhage (principal); K25.4 Chronic or unspecified gastric ulcer with hemorrhage; K22.89 Other specified disease of esophagus; Z20.822 Contact with and (suspected) exposure to COVID-19; R03.0 Elevated blood-pressure reading, without diagnosis of hypertension
CPT/HCPCS: 36415; 43239; 71045; 74177; 80048; 80053; 82550; 83690; 83735; 84484; 85025; 85027; 85610; 85730; 86850; 86900; 86901; 87635; 93005; 93010; 96374; 96375; 99232; 99284; C9803; C9113; J2270; J2405; J2704; Q9967

== ENCOUNTER 2022-11-24 10:53 | Emergency (ER) | payer MEDICARE, SELFPAY ==
[2022-11-18 17:52] VITALS: BMI 24.7
[2022-11-24 11:41] VITALS: BP 146/78; PULSE 99; RESP 19; TEMP 36.6; O2SAT 96; BMI 24.7
--- NOTE | 2022-11-24 11:45 | DI.RAD.S_ITS ---
PROCEDURE: XR CHEST 1V INDICATIONS: chest pain TECHNIQUE: One view of the chest was acquired. COMPARISON: [facility], CR, XR CHEST 1V, 11/18/2022, 14:17. FINDINGS: Surgical changes and devices: None. Lungs and pleura: Lungs are clear. No pleural effusions or pneumothorax. Mediastinum: Mediastinal contours appear normal. Heart size is normal. Bones and chest wall: No suspicious bony lesions. Overlying soft tissues appear unremarkable. IMPRESSION: No acute pulmonary process. Dictated by: Rose Rousseau M.D. on 11/24/2022 at 12:24 Approved by: Rose Rousseau M.D. on 11/24/2022 at 12:25
[2022-11-24 13:18] LABS: Add Manual Diff / Slide Review NO; Basophils Absolute Auto 0 /uL (0-100); Basophils Percent Auto 0.4 % (0-2); Eosinophils Absolute Auto 0 /uL (0-450); Eosinophils Percent Auto 0.2 % (2-4); Hematocrit 36.1 % (36-46); Hemoglobin 12.5 g/dL (12.0-16.0); Lymphocytes Absolute Auto 1000 /uL (1100-4500); Lymphocytes Percent Auto 12.1 % (25-40); Mean Corpuscular HGB Conc 34.6 % (30-36); Mean Corpuscular Hemoglobin 30.2 PG (26-34); Mean Corpuscular Volume 87.4 fL (80-100); Monocytes Absolute Auto 700 /uL (0-900); Monocytes Percent Auto 8.4 % (3-14); Neutrophils Absolute Auto 6300 /uL (1500-7000); Neutrophils Percent Auto 78.9 % (50-75); Platelet Count 304 X10^3/uL (150-400); Red Blood Cell Count 4.13 X10^6/uL (4.0-5.2)
[2022-11-24 13:27] LABS: INR 1.2 (0.9-1.3); Prothrombin Time 13.5 SECONDS (10.1-12.7)
[2022-11-24 13:30] LABS: PTT Partial Thromboplastin Tim 30 SECONDS (26-36)
[2022-11-24 13:32] LABS: Alanine Aminotransferase 18 IU/L (<35); Alkaline Phosphatase 127 U/L (38-126); Aspartate Aminotransferase 24 IU/L (14-36); BUN Creatinine Ratio 10.7 (6-22); Bilirubin Total 0.6 mg/dL (0.2-1.3); Blood Urea Nitrogen 6 mg/dL (7-17); Calcium 9.4 mg/dL (8.4-10.2); Carbon Dioxide 27 mmol/L (22-32); Chloride 100 mmol/L (98-107); Creatine Kinase 48 U/L (30-135); Estimated Glomerular Filt Rate > 60 mL/min (>60); Glucose 101 mg/dL (80-110); Lipase 62 U/L (23-300); Magnesium 2.1 mg/dL (1.6-2.3); Potassium 4.1 mmol/L (3.4-5.1); Sodium 138 mmol/L (137-145); Total Protein 7.9 g/dL (6.3-8.2)
[2022-11-24 13:43] LABS: Troponin I < 0.012 ng/mL (0.01-0.034)
[2022-11-24 14:13] VITALS: BP 147/67; PULSE 80; RESP 18; O2SAT 97
--- NOTE | 2022-11-24 16:22 | DI.CT.S_ITS ---
PROCEDURE: CT CHEST ABD PEL W CON INDICATIONS: s/p EGD; chest pain TECHNIQUE: After the administration of oral and intravenous contrast, axial sections acquired from the supraclavicular neck to the pubic symphysis. Coronal and sagittal reformats were performed. For radiation dose reduction, the following was used: automated exposure control, adjustment of mA and/or kV according to patient size. COMPARISON: [facility], CT, CT ABDOMEN PELVIS W CON, 11/18/2022, 15:18. FINDINGS: Image quality: Excellent. CHEST: Lower Neck: No enlarged lymph nodes. Thyroid: Within normal limits. Axillae: No enlarged lymph nodes. Chest Wall: Unremarkable. Lungs and Airways: No consolidation or suspicious nodules. Pleura: No pneumothorax or pleural effusions. Heart: Heart size is normal. No pericardial effusion. Thoracic Vessels: The aorta and pulmonary arteries demonstrate normal size. Mediastinum and Yael: No enlarged lymph nodes. Esophagus: Mild esophageal distention. There is thickening at the gastroesophageal junction. No pneumomediastinum to suggest esophageal perforation. ABDOMEN: Liver: Normal size. Hepatic hypodensities are most likely cysts.. Gallbladder: Unremarkable. Biliary ducts: Unremarkable. Pancreas: Unremarkable. Spleen: Unremarkable. Adrenal Glands: There is a 1.1 cm left adrenal nodule. Kidneys and Ureters: Unremarkable. Stomach and Bowel: There is mild gastric antral thickening. The small bowel loops and colon are unremarkable. Peritoneum: No pneumoperitoneum. No abnormal intraperitoneal fluid. No free air. Ventral Wall: No hernia. Abdominal Nodes: No retroperitoneal or mesenteric adenopathy by size criteria. Vessels: Aorta and inferior vena cava are normal in size. PELVIS: Pelvic Organs: Unremarkable. Bladder: Unremarkable. Pelvic Nodes: No enlarged lymph nodes. Miscellaneous: No inguinal hernias are seen. Bones: Old left rib fractures are noted. There is grade 1 anterolisthesis of L4 on L5. Moderate degenerative disc and facet disease in lumbar spine. IMPRESSION: 1. There is thickening at the gastroesophageal junction. Differential diagnoses are esophagitis, Huitron's esophagus and esophageal neoplasm. Please correlate with EGD findings. No findings to suggest esophageal perforation. 2. No pneumoperitoneum. 3. There is mild gastric antral thickening. Differential diagnoses are artifact from peristalsis versus peptic ulcer disease. 4. A 1.1 cm left adrenal nodule. Adrenal protocol CT or MRI is suggested for follow-up. Dictated by: Rayna Herr M.D. on 11/24/2022 at 16:21 Approved by: Rayna Herr M.D. on 11/24/2022 at 16:36
--- NOTE | 2022-11-24 16:40 | ED_ITS ---
HPI - Abdominal Pain <Carl Magallon PA-C - Last Filed: 11/24/22 18:57> General Chief Complaint: Abdominal Pain Stated Complaint: HX of bleeding ulcer hurts to eat or drink T-7 Time Seen by Provider: 11/24/22 14:03 Source: patient Mode of arrival: Family Vehicle History of Present Illness HPI narrative: 67-year-old female with past medical history peptic ulcer, gastritis status post an EGD on 11/19/2022 presents to the ED with esophageal pain and soreness. Patient states that she has been experiencing the pain since the procedure, pain is severe on swallowing water or food. Patient states she has been unable to eat or drink very much due to the pain. Patient states that the pain spans the length of her esophagus, not so much in the throat. Patient denies fever, chills, cough, shortness of breath, rhinorrhea, nausea, vomiting, diarrhea, constipation, abdominal pain, lightheadedness, dizziness, syncope. Patient was diagnosed with a 2 cm superficial ulcer in the fundus of the stomach, gastritis and gastric erosions, duodenitis with duodenal erosions. The esophagus showed distal scarring and a frozen GE junction but no masses. Related Data Previous Rx's Medication Instructions Recorded pantoprazole 40 mg tablet,delayed 40 mg PO BID #60 tabs 11/19/22 release (Protonix) diazepam 5 mg tablet (Valium) 5 mg PO Q6H PRN muscle spasm 14 11/24/22 days #52 tabs Allergies Allergy/AdvReac Type Severity Reaction Status Date / Time No Known Drug Allergies Allergy Verified 11/24/22 11:41 Review of Systems <Carl Magallon PA-C - Last Filed: 11/24/22 18:57> Review of Systems ROS Unobtainable: All systems reviewed & are unremarkable except as noted in HPI and below Constitutional Constitutional: Denies chills, Denies fatigue, Denies fever(s), Denies frequent falls, Denies lethargy and Denies weakness Eyes Eyes: Denies change in vision, Denies eye discharge, Denies irritation and Denies loss of vision ENT Ears, Nose, Mouth, and Throat: Denies change in voice, Denies dizziness, Denies neck pain, Denies sore throat and Denies throat swelling Comments: Esophageal Pain with swallowing Cardiovascular Cardiovascular: Denies chest pain, Denies irregular heart rhythm, Denies lightheadedness, Denies palpitations, Denies dyspnea, Denies dyspnea on exertion and Denies orthopnea Respiratory Respiratory: Denies cough, Denies dyspnea, Denies dyspnea on exertion and Denies wheezing Gastrointestinal Gastrointestinal: Denies abdominal pain, Denies change in bowel habits, Denies diarrhea, Denies nausea and Denies vomiting Genitourinary Genitourinary: Denies hematuria, Denies flank pain, Denies urinary incontinence and Denies urinary urgency Musculoskeletal Musculoskeletal: Denies back pain, Denies muscle weakness, Denies neck pain, Denies numbness and Denies tingling Integumentary/Breasts Skin/Breast: Denies pruritus, Denies erythema, Denies rash and Denies wounds Neurologic Neurologic: Denies behavioral changes, Denies confusion, Denies dizziness, Denies frequent falls, Denies loss of vision, Denies numbness, Denies tingling and Denies weakness Psychiatric Psychiatric: Denies anxiety, Denies behavioral changes, Denies confusion, Denies depression, Denies homicidal ideation and Denies suicidal ideation Endocrine Endocrine: Denies fatigue, Denies flushing and Denies palpitations Hematologic/Lymphatic Hematologic/Lymphatic: Denies easy bruising Allergic/Immunologic Allergic/Immunologic: Denies urticaria, Denies throat swelling and Denies wh eezing Patient History <Carl Magallon PA-C - Last Filed: 11/24/22 18:57> Social History household members: spouse Smoking Status: Never smoker alcohol intake: never Smoking Status: Never smoker alcohol intake frequency: 0-2 drinks per day Substance Use Type: does not use Exam <Carl Magallon PA-C - Last Filed: 11/24/22 18:57> Narrative Exam Narrative: Const General:?cooperative, healthy appearing and comfortable [facility] Head:?normal to inspection Ears:?hearing grossly normal bilaterally Nose:?external nose normal Face and sinus:?normal facial exam and sinuses nontender Mouth:?oral mucosae normal Throat:?posterior oropharynx normal Eyes General:?appearance normal, both eyes and all related structures Neck Neck:?normal visual inspection and no lymphadenopathy noted Resp Effort & Inspection:?normal respiratory effort Auscultation:?clear to auscultation bilaterally Cardio Rate:?regular rate Rhythm:?regular rhythm GI Abdomen is soft, nondistended, nontender to palpation. Neuro General:?patient alert, patient awake and patient oriented x3 Initial Vital Signs Initial Vital Signs: Vital Signs Temperature 97.8 F 11/24/22 11:41 Pulse Rate 99 H 11/24/22 11:41 Respiratory Rate 19 11/24/22 11:41 Blood Pressure 146/78 H 11/24/22 11:41 Pulse Oximetry 96 11/24/22 11:41 Oxygen Delivery Method 11/24/22 11:41 <Miguel A Rao DO - Last Filed: 11/25/22 11:16> Initial Vital Signs Initial Vital Signs: Vital Signs Temperature 97.8 F 11/24/22 11:41 Pulse Rate 99 H 11/24/22 11:41 Respiratory Rate 19 11/24/22 11:41 Blood Pressure 146/78 H 11/24/22 11:41 Pulse Oximetry 96 11/24/22 11:41 Oxygen Delivery Method 11/24/22 11:41 Course <Carl Magallon PA-C - Last Filed: 11/24/22 18:57> Orders Ordered: Discontinued Medications Aspirin (Aspirin 81 Mg Chew Tab) 324 mg PO NOW ONE Stop: 11/24/22 11:46 Last Admin: 11/24/22 13:58 Dose: Not Given Documented By: RON Diazepam (Diazepam 5 Mg Tablet) 5 mg PO NOW ONE Stop: 11/24/22 18:02 Last Admin: 11/24/22 18:05 Dose: 5 mg Documented By: RON Vital Signs Vital signs: Vital Signs - 8 hr 11/24/22 11:41 11/24/22 14:13 11/24/22 17:25 Temperature 97.8 F Pulse Rate 99 H 80 92 H Respiratory Rate 19 18 17 Blood Pressure 146/78 H 147/67 H 136/65 Pulse Oximetry 96 97 96 Oxygen Delivery Method Room Air Room Air <DO Marina Ashford Last Filed: 11/25/22 11:16> Orders Ordered: Discontinued Medications Aspirin (Aspirin 81 Mg Chew Tab) 324 mg PO NOW ONE Stop: 11/24/22 11:46 Last Admin: 11/24/22 13:58 Dose: Not Given Documented By: RON Diazepam (Diazepam 5 Mg Tablet) 5 mg PO NOW ONE Stop: 11/24/22 18:02 Last Admin: 11/24/22 18:05 Dose: 5 mg Documented By: RON Vital Signs Vital signs: Vital Signs - 8 hr 11/24/22 11:41 11/24/22 14:13 11/24/22 17:25 Temperature 97.8 F Pulse Rate 99 H 80 92 H Respiratory Rate 19 18 17 Blood Pressure 146/78 H 147/67 H 136/65 Pulse Oximetry 96 97 96 Oxygen Delivery Method Room Air Room Air MDM - Abdominal Pain <Carl Magallon PA-C - Last Filed: 11/24/22 18:57> Lab Data Result diagrams: 11/24/22 12:45 11/24/22 12:45 Labs: Lab Results 11/24/22 11/24/22 11/24/22 Range/Units 12:45 12:45 12:45 WBC 8.0 (4.5-11.0) X10^3/uL RBC 4.13 (4.0-5.2) X10^6/uL Hgb 12.5 (12.0-16.0) g/dL Hct 36.1 (36-46) % MCV 87.4 (80-100) fL MCH 30.2 (26-34) PG MCHC 34.6 (30-36) % RDW 14.0 (11.6-14.8) % Plt Count 304 (150-400) X10^3/uL Neut % (Auto) 78.9 H (50-75) % Lymph % (Auto) 12.1 L (25-40) % Bullitt % (Auto) 8.4 (3-14) % Eos % (Auto) 0.2 L (2-4) % Baso % (Auto) 0.4 (0-2) % Neut # (Auto) 6300 (0111-3179) /uL Lymph # (Auto) 1000 L (3679-4861) /uL Bullitt # (Auto) 700 (0-900) /uL Eos # (Auto) 0 (0-450) /uL Baso # (Auto) 0 (0-100) /uL PT 13.5 H (10.1-12.7) SECONDS INR 1.2 (0.9-1.3) APTT 30 (26-36) SECONDS Sodium 138 (137-145) mmol/L Potassium 4.1 (3.4-5.1) mmol/L Chloride 100 (98-107) mmol/L Carbon Dioxide 27 (22-32) mmol/L BUN 6 L (7-17) mg/dL Creatinine 0.56 (0.52-1.04) mg/dL Estimated GFR > 60 (>60) mL/min BUN/Creatinine Ratio 10.7 (6-22) Glucose 101 (80-110) mg/dL Calcium 9.4 (8.4-10.2) mg/dL Magnesium 2.1 (1.6-2.3) mg/dL Total Bilirubin 0.6 (0.2-1.3) mg/dL AST 24 (14-36) IU/L ALT 18 (<35) IU/L Alkaline Phosphatase 127 H (38-126) U/L Total Creatine Kinase 48 (30-135) U/L CK-MB (CK-2) TNP CK-MB (CK-2) Rel Index TNP Troponin I < 0.012 (0.01-0.034) ng/mL Total Protein 7.9 (6.3-8.2) g/dL Lipase 62 (23-300) U/L SARS-CoV-2 (PCR) (Negative) 11/24/22 Range/Units 17:28 WBC (4.5-11.0) X10^3/uL RBC (4.0-5.2) X10^6/uL Hgb (12.0-16.0) g/dL Hct (36-46) % MCV (80-100) fL MCH (26-34) PG MCHC (30-36) % RDW (11.6-14.8) % Plt Count (150-400) X10^3/uL Neut % (Auto) (50-75) % Lymph % (Auto) (25-40) % Bullitt % (Auto) (3-14) % Eos % (Auto) (2-4) % Baso % (Auto) (0-2) % Neut # (Auto) (5837-6722) /uL Lymph # (Auto) (5552-0656) /uL Bullitt # (Auto) (0-900) /uL Eos # (Auto) (0-450) /uL Baso # (Auto) (0-100) /uL PT (10.1-12.7) SECONDS INR (0.9-1.3) APTT (26-36) SECONDS Sodium (137-145) mmol/L Potassium (3.4-5.1) mmol/L Chloride (98-107) mmol/L Carbon Dioxide (22-32) mmol/L BUN (7-17) mg/dL Creatinine (0.52-1.04) mg/dL Estimated GFR (>60) mL/min BUN/Creatinine Ratio (6-22) Glucose (80-110) mg/dL Calcium (8.4-10.2) mg/dL Magnesium (1.6-2.3) mg/dL Total Bilirubin (0.2-1.3) mg/dL AST (14-36) IU/L ALT (<35) IU/L Alkaline Phosphatase (38-126) U/L Total Creatine Kinase (30-135) U/L CK-MB (CK-2) CK-MB (CK-2) Rel Index Troponin I (0.01-0.034) ng/mL Total Protein (6.3-8.2) g/dL Lipase (23-300) U/L SARS-CoV-2 (PCR) Negative (Negative) MDM Narrative Medical decision making narrative: 67-year-old female with past medical history peptic ulcer, gastritis status post an EGD on 11/19/2022 presents to the ED with esophageal pain and soreness. Concern for postprocedure complications including esophageal perforation versus soreness from the procedure versus ACS versus other. Will obtain labs, EKG, troponin, CT chest abdomen pelvis. Will re-evaluate. Labs within normal limits. CT without evidence of perforation or other acute findings post the EGD. Consulted Dr. Carranza from surgery who performed the EGD, who noted that these symptoms could last 2-3 weeks before resolution. She recommend 5 mg of Valium q.6 as needed to ease muscle spasms. She recommends fluids at room temperature or warmer, and to ensure good hydration. Patient to continue the pantoprazole twice a day for the next 6-8 weeks. Discussed findings and Dr. Carranza's recommendations with patient. ED return precautions were also discussed with patient. Patient verbalized understanding. Discharge patient home with prescription for Valium. Medical records reviewed:??yes Imaging studies independently reviewed:yes ? Consultations:as above ? Treatments:valium ? Disposition: see below, along with detailed discharge instructions that have been reviewed with patient as well as indications for ED re-evaluation and additional outpatient follow up <Miguel A Rao DO - Last Filed: 11/25/22 11:16> Lab Data Labs: Lab Results 11/24/22 11/24/22 11/24/22 Range/Units 12:45 12:45 12:45 WBC 8.0 (4.5-11.0) X10^3/uL RBC 4.13 (4.0-5.2) X10^6/uL Hgb 12.5 (12.0-16.0) g/dL Hct 36.1 (36-46) % MCV 87.4 (80-100) fL MCH 30.2 (26-34) PG MCHC 34.6 (30-36) % RDW 14.0 (11.6-14.8) % Plt Count 304 (150-400) X10^3/uL Neut % (Auto) 78.9 H (50-75) % Lymph % (Auto) 12.1 L (25-40) % Bullitt % (Auto) 8.4 (3-14) % Eos % (Auto) 0.2 L (2-4) % Baso % (Auto) 0.4 (0-2) % Neut # (Auto) 6300 (1328-4877) /uL Lymph # (Auto) 1000 L (5428-5342) /uL Bullitt # (Auto) 700 (0-900) /uL Eos # (Auto) 0 (0-450) /uL Baso # (Auto) 0 (0-100) /uL PT 13.5 H (10.1-12.7) SECONDS INR 1.2 (0.9-1.3) APTT 30 (26-36) SECONDS Sodium 138 (137-145) mmol/L Potassium 4.1 (3.4-5.1) mmol/L Chloride 100 (98-107) mmol/L Carbon Dioxide 27 (22-32) mmol/L BUN 6 L (7-17) mg/dL Creatinine 0.56 (0.52-1.04) mg/dL Estimated GFR > 60 (>60) mL/min BUN/Creatinine Ratio 10.7 (6-22) Glucose 101 (80-110) mg/dL Calcium 9.4 (8.4-10.2) mg/dL Magnesium 2.1 (1.6-2.3) mg/dL Total Bilirubin 0.6 (0.2-1.3) mg/dL AST 24 (14-36) IU/L ALT 18 (<35) IU/L Alkaline Phosphatase 127 H (38-126) U/L Total Creatine Kinase 48 (30-135) U/L CK-MB (CK-2) TNP CK-MB (CK-2) Rel Index TNP Troponin I < 0.012 (0.01-0.034) ng/mL Total Protein 7.9 (6.3-8.2) g/dL Lipase 62 (23-300) U/L SARS-CoV-2 (PCR) (Negative) 11/24/22 Range/Units 17:28 WBC (4.5-11.0) X10^3/uL RBC (4.0-5.2) X10^6/uL Hgb (12.0-16.0) g/dL Hct (36-46) % MCV (80-100) fL MCH (26-34) PG MCHC (30-36) % RDW (11.6-14.8) % Plt Count (150-400) X10^3/uL Neut % (Auto) (50-75) % Lymph % (Auto) (25-40) % Bullitt % (Auto) (3-14) % Eos % (Auto) (2-4) % Baso % (Auto) (0-2) % Neut # (Auto) (9825-1944) /uL Lymph # (Auto) (0796-9051) /uL Bullitt # (Auto) (0-900) /uL Eos # (Auto) (0-450) /uL Baso # (Auto) (0-100) /uL PT (10.1-12.7) SECONDS INR (0.9-1.3) APTT (26-36) SECONDS Sodium (137-145) mmol/L Potassium (3.4-5.1) mmol/L Chloride (98-107) mmol/L Carbon Dioxide (22-32) mmol/L BUN (7-17) mg/dL Creatinine (0.52-1.04) mg/dL Estimated GFR (>60) mL/min BUN/Creatinine Ratio (6-22) Glucose (80-110) mg/dL Calcium (8.4-10.2) mg/dL Magnesium (1.6-2.3) mg/dL Total Bilirubin (0.2-1.3) mg/dL AST (14-36) IU/L ALT (<35) IU/L Alkaline Phosphatase (38-126) U/L Total Creatine Kinase (30-135) U/L CK-MB (CK-2) CK-MB (CK-2) Rel Index Troponin I (0.01-0.034) ng/mL Total Protein (6.3-8.2) g/dL Lipase (23-300) U/L SARS-CoV-2 (PCR) Negative (Negative) Discharge Plan Departure Patient Disposition: Home Clinical Impression: Painful swallowing Instructions: DI for Esophageal Dysphagia Activity Restrictions/Additional Instructions: You were evaluated in the ED today for pain associated with swallowing. Your labs, CT were without acute findings and there is no indication of an esophageal perforation. Dr. Carranza who did your endoscopy was consulted, she advises that this type of discomfort is common after a procedure such as the endoscopy and that it can take 2-3 weeks to resolve. She advises room temperature or warmer fluids, would like you to stay well hydrated. She also recommends 5 mg of Valium every 6 hours as needed to relax the muscles of the esophagus which will ease the pain associated with swallowing. Please return to the ED if your symptoms worsen, you are unable to swallow any liquids, you experience any chest pain or shortness of breath. Prescriptions: New diazepam [Valium] 5 mg tablet 5 mg PO Q6H PRN (Reason: muscle spasm) 14 Days Qty: 52 0RF No Action pantoprazole [Protonix] 40 mg tablet,delayed release (DR/EC) 40 mg PO BID Qty: 60 0RF Referrals: Miscellaneous,Doctor, MD [Primary Care Provider] - Stand Alone Forms: Patient Portal/API <Miguel A Rao DO - Last Filed: 11/25/22 11:16> Cosign ED Attending Mollyature Attestation: I was immediately available in the department for consultation. Documentation has been reviewed. I agree with assessment and plan.
[2022-11-24 17:25] VITALS: BP 136/65; PULSE 92; RESP 17; O2SAT 96
[2022-11-24] MEDS: diazePAM 5 MG TABLET PO (18:05)
[2022-11-24 18:07] LABS: COVID19 -Nasal RAPID Negative (Negative)
[2022-11-24 18:45] VITALS: BP 129/76; PULSE 85; RESP 16; O2SAT 99
[2022-11-27 16:19] LABS: Albumin 4.5 g/dL (3.5-5.0); Albumin Globulin Ratio 1.3 (1.0-2.8); Globulin 3.4 g/dL (1.7-4.1); HEMOLYSIS 32 (0-50)
== END 2022-11-24 18:45 | disposition home or self-care (01) ==
PROVIDERS: Emergency Medicine; Emergency Provider Student in an Organized Health Care Education/Training Program
DX: R13.10 Dysphagia, unspecified (principal); R07.9 Chest pain, unspecified; Z20.822 Contact with and (suspected) exposure to COVID-19
CPT/HCPCS: 36415; 71045; 71260; 74177; 80053; 82550; 83690; 83735; 84484; 85025; 85610; 85730; 87635; 93005; 99284; C9803; Q9967

== ENCOUNTER → 2022-12-08 13:45 | Outpatient (CLI) | payer MEDICARE, SELFPAY ==
[2022-11-18 17:52] VITALS: BMI 24.7
--- NOTE | 2022-12-08 13:47 | DI.US.S_ITS ---
PROCEDURE: US ABDOMEN COMPLETE INDICATIONS: Abdominal pain TECHNIQUE: Real-time scanning was performed of the abdominal and retroperitoneal organs, with image documentation. COMPARISON: [facility], CT, CT CHEST ABD PEL W CON, 11/24/2022, 16:23. FINDINGS: Liver: Liver is normal in size and homogeneous in echotexture. A simple cyst is seen within the anterior right liver that measures up to 18 mm. Gallbladder: No findings of gallstones or sludge are seen. The gallbladder wall is not thickened, measuring 3 mm or less. No specific pericholecystic fluid is seen. The sonographic Gonzalez sign is negative. Biliary ducts: Intrahepatic bile ducts are non-dilated. Extrahepatic bile duct caliber measures 5 mm. Normal is 6-7 mm or less in diameter, or 10 mm or less post-cholecystectomy. Pancreas: Visualized portions of the pancreas are sonographically normal. Spleen: Spleen is normal in size and homogeneous in echotexture. Kidneys: Kidneys are normal in size and echotexture. Right kidney measures 9.3 cm long; left kidney measures 11.2 cm long. No hydronephrosis or nephrolithiasis. No solid masses. Aorta: Visualized aorta is normal in caliber at less than 3 cm. Iliacs: Proximal common iliac arteries are normal in caliber at less than 2.5 cm. IVC: Intrahepatic inferior vena cava is patent. Miscellaneous: No free abdominal fluid. This study is limited by bowel gas. IMPRESSION: The gallbladder demonstrates a normal sonographic appearance. No biliary dilatation is seen. No acute abnormality is seen. Additional findings: Simple appearing left liver cyst Dictated by: Srinivasan Higginbotham M.D. on 12/08/2022 at 15:09 Approved by: Srinivasan Higginbotham M.D. on 12/08/2022 at 15:10
--- NOTE | 2022-12-08 13:47 | DI.RAD.S_ITS ---
PROCEDURE: FL BARIUM SWALLOW INDICATIONS: Dysphagia COMPARISON: [facility], , ABDOMEN COMPLETE, 12/08/2022, 13:58. FINDINGS: Function: There is mild esophageal dysmotility. No elicited gastroesophageal reflux. There is normal transit of a calibrated barium tablet through the esophagus into the stomach. Morphology: Air-contrast images demonstrate normal mucosal morphology. Single contrast views show no esophageal strictures, extrinsic mass effects, or diverticula. Limited images of the stomach demonstrate normal appearance. IMPRESSION: 1. Mild esophageal dysmotility. Dictated by: Rayna Herr M.D. on 12/08/2022 at 20:30 Approved by: Rayna Herr M.D. on 12/08/2022 at 20:30
== END ==
PROVIDERS: PCP Family Medicine; Referring Provider Surgery; Visit Provider Surgery
DX: K22.4 Dyskinesia of esophagus (principal); R13.10 Dysphagia, unspecified; K92.0 Hematemesis; K76.89 Other specified diseases of liver
CPT/HCPCS: 74220; 76700

== ENCOUNTER → 2023-02-03 10:49 | Outpatient (CLI) | payer MEDICARE, SELFPAY ==
[2022-11-18 17:52] VITALS: BMI 24.7
--- NOTE | 2023-02-03 10:52 | DI.RAD.S_ITS ---
PROCEDURE: XR LUMBAR SPINE MIN 4V INDICATIONS: Low back pain TECHNIQUE: 5 views of the lumbar spine were acquired, including bilateral oblique views. COMPARISON: None. FINDINGS: Bones: 5 nonrib-bearing vertebrae are present. Grade 1 anterolisthesis of L4 on L5. Slight rightward curvature of the spine. Mild to moderate, multilevel degenerative disc disease, most prominent at L4-5. Facet arthrosis L3 through S1. Soft tissues: Overlying bowel gas pattern is normal. No suspicious soft tissue calcifications. Oblique images: No pars defects. IMPRESSION: Mild to moderate, multilevel degenerative disc disease and facet arthrosis, most prominent at L4-5. Grade 1 anterolisthesis of L4 on L5 secondary to facet arthrosis. Dictated by: Guilherme Gates M.D. on 02/03/2023 at 13:15 Approved by: Guilherme Gates M.D. on 02/03/2023 at 13:16
--- NOTE | 2023-02-03 10:52 | DI.RAD.S_ITS ---
PROCEDURE: XR KNEE LT 3V INDICATIONS: LEFT KNEE PAIN TECHNIQUE: 3 views of the knee were acquired. COMPARISON: None. FINDINGS: Bones: No fractures or dislocations. No suspicious bony lesions. Tricompartmental joint space narrowing with associated osteophytosis. Soft tissues: Moderate joint effusion. No suspicious soft tissue calcifications. IMPRESSION: Moderate knee joint effusion without acute bony abnormality. Mild to moderate, tricompartmental osteoarthritis. Dictated by: Guilherme Gates M.D. on 02/03/2023 at 13:16 Approved by: Guilherme Gates M.D. on 02/03/2023 at 13:16
== END ==
PROVIDERS: PCP Family Medicine; Referring Provider Anesthesiology; Visit Provider Anesthesiology
DX: M51.36 Other intervertebral disc degeneration, lumbar region (principal); M47.816 Spondylosis without myelopathy or radiculopathy, lumbar region; M47.817 Spondylosis without myelopathy or radiculopathy, lumbosacral region; M43.16 Spondylolisthesis, lumbar region; M17.12 Unilateral primary osteoarthritis, left knee; M25.461 Effusion, right knee; M54.50 Low back pain, unspecified; M25.562 Pain in left knee; M79.605 Pain in left leg; G89.29 Other chronic pain
CPT/HCPCS: 72110; 73562; 99214

== ENCOUNTER 2023-03-22 10:50 | Day surgery (SDC) | payer MEDICARE, SELFPAY ==
[2022-11-18 17:52] VITALS: BMI 24.7
--- NOTE | 2023-03-22 | PATH_ITS ---
[facility] Accession Number: [id number] No. of containers..05 Tissue . 01 Material submitted: . PART A: stomach - ANTRUM BIOPSY PART B: stomach - ANGULARIS BIOPSY PART C: stomach - LESSER CURVE BIOPSY PART D: stomach - GREATER CURVE BIOPSY PART E: stomach - BODY BIOPSY . 01 Diagnosis: A-B: Gastric Antrum, Angularis, Biopsies: Gastric antral mucosa with no diagnostic abnormality. No evidence of Helicobacter organisms on H/E stain. Negative for intestinal metaplasia. Negative for dysplasia or malignancy. . C-D: Stomach, Lesser Curver, Greater Curve, Biopsies: Gastric body mucosa with no diagnostic abnormality. No evidence of Helicobacter organisms on H/E stain. Negative for intestinal metaplasia. Negative for dysplasia or malignancy. . E. Gastric Body, Biopsy: Gastric body mucosa with proton pump inhibitor-like effect. No evidence of Helicobacter organisms on H/E stain. Negative for intestinal metaplasia. Negative for dysplasia or malignancy. [facility] 03/25/2023 1439 Local . 01 Electronically signed: . Bao Fontaine MD, PhD, Pathologist NPI- [id number] . 01 Gross description: . Part A: ANTRUM BIOPSY: Received in formalin is 1 fragment(s) of oliveros, soft tissue measuring 0.4 x 0.3 x 0.1 cm submitted entirely in 1 cassette(s) Part B: ANGULARIS BIOPSY: Received in formalin are 2 fragment(s) of oliveros, soft tissue measuring 0.2 x 0.1 x 0.1 cm to 0.1 x 0.1 x 0.1 cm submitted entirely in 1 cassette(s) Part C: LESSER CURVE BIOPSY: Received in formalin are 2 fragment(s) of oliveros, soft tissue measuring 0.2 x 0.1 x 0.1 cm to 0.1 x 0.1 x 0.1 cm submitted entirely in 1 cassette(s) Part D: GREATER CURVE BIOPSY: Received in formalin are 2 fragment(s) of oliveros, soft tissue measuring 0.2 x 0.2 x 0.1 cm to 0.2 x 0.1 x 0.1 cm submitted entirely in 1 cassette(s) Part E: BODY BIOPSY: Received in formalin are 2 fragment(s) of oliveros, soft tissue measuring 0.2 x 0.2 x 0.2 cm to 0.2 x 0.2 x 0.1 cm submitted entirely in 1 cassette(s) /[facility] 03/24/2023 1301 Local . 01 Pathologist provided ICD-10: R13.10, Z87.19 . 01 CPT . 571353, 521611, 740283, [id number], [id number] Specimen Comment: A courtesy copy of this report has been sent to [phone] Performed at: 01 [facility] [address] [place] [address] [address] [facility] [place], [place], [place] [id number] MD Dallin Arndt MD Phone: [phone]
[2023-03-22] MEDS: LACTATED RINGERS 1,000 ML 100 ML IV (11:16)
[2023-03-22 11:20] VITALS: BP 122/80; PULSE 90; RESP 16; TEMP 37; O2SAT 98; BMI 24.3
--- NOTE | 2023-03-22 12:21 | PM.HP.1 ---
History of Present Illness History of Present Illness Date Patient Seen: 03/22/23 Time Patient Seen: 12:21 Chief complaint: EGD w/poss bx Narrative: I reviewed my office note. No changes. PFSH Medical History Cervicalgia Chronic low back pain Headache Left knee pain Left leg pain Social History household members: spouse Smoking Status: Never smoker alcohol intake: former Meds Home Medications and Allergies Home Medications Medication Instructions Recorded Confirmed Type fluorouracil 5 % topical cream applic topical DAILY 03/22/23 History Allergies Allergy/AdvReac Type Severity Reaction Status Date / Time No Known Drug Allergies Allergy Verified 03/22/23 11:17 Review of Systems Review of Systems ROS: Yes All systems reviewed with the patient and are negative except as otherwise documented Exam Vital Signs (past 8 hours): - 03/22/23 11:20 Temperature 98.6 F Pulse Rate 90 Respiratory Rate 16 Blood Pressure 122/80 Pulse Oximetry 98 Oxygen Delivery Method Room Air Oxygen Delivery Method Room Air Const General: cooperative HENMT Head: normal to inspection Eyes General: appearance normal, both eyes and all related structures Neck Neck: normal visual inspection Chest Chest: normal inspection of the chest Resp Effort & Inspection: normal respiratory effort Cardio Rate: regular rate GI Inspection: normal to inspection Skin General: no rashes or lesions noted Neuro General: patient alert and patient awake Extrem General: normal to inspection and no pedal edema Psych Appearance: grossly normal Assessment & Plan Assessment & Plan narrative: 67-year-old female with a history of gastric ulcer and gastric intestinal metaplasia here for repeat EGD today.
--- NOTE | 2023-03-22 12:22 | PM.PREOP ---
Pre-operative Note Interval Note History & Physical reviewed/Exam performed by Physician: Yes Changes to H&P: No ASA Class (for procedural sedation): II
--- NOTE | 2023-03-22 13:24 | P.OP.EGD_ITS ---
Operative Date/Time/Diagnoses Date of procedure: 03/22/23 Time of procedure: 13:24 Pre-op diagnosis: History of gastric ulcer and gastric intestinal metaplasia. History of dysphagia to cold items Post-op diagnosis: same Procedure & Clinicians Study performed: EGD with biopsies Same procedure as scheduled: Yes Indications: History of gastric ulcer and gastric intestinal metaplasia. History of dysphagia to cold items. Surgeon: Adeel Torrez Procedure Notes SCOAP/Timeout: Done Procedure in detail: After the risks and benefits were explained, written and verbal informed consent was obtained. The patient was brought into the procedure room and placed into the left lateral decubitus position. Please see anesthesia notes for sedation details. The scope was introduced into the mouth through the bite block and ad vanced under direct visualization to the 2nd portion of the duodenum. The scope was slowly withdrawn carefully examining the mucosa for any defects or lesions. Retroflexed views were accomplished in the stomach. The stomach was decompressed, the scope was then removed from the patient who tolerated the procedure well. Sedation minutes: 14 Complications: none Impression: 1. Duodenum: This was visually normal from the bulb through to the 2nd portion. 2. Stomach: There was no evidence of any mass lesion. In the distal gastric body along the greater curvature there was some subtle patchy erosive change. Otherwise no significant mucosal abnormality throughout. Biopsies were taken from the antrum, angularis, lesser curve, greater curve, and gastric body for histopathologic analysis. The specimen labeled greater curvature included the eroded mucosa. The specimen from the gastric body included a couple of slightly off white very subtle gastric polyps. 3. Esophagus: The squamocolumnar junction correlated with the top of the gastric folds. GEJ was at 38 cm from the incisors. No mass lesions no strictures no obvious mucosal pathology. The act of upper endoscopy induced a small rent in the mucosa through the upper esophageal sphincter mechanism. No obvious ongoing sustained bleeding. Endoscopic diagnosis 1. Erosive gastropathy 2. Subtle proximal gastric polyps Post-procedure Plan for aftercare: Await histopathology. Disposition: PACU
[2023-03-22 13:25] VITALS: BP 116/86; PULSE 77; RESP 16; TEMP 36.4; O2SAT 98
[2023-03-22 13:30] VITALS: BP 124/86; PULSE 62; RESP 16; O2SAT 98
[2023-03-22 13:35] VITALS: BP 131/86; PULSE 71; RESP 12; TEMP 36.2; O2SAT 98
[2023-03-22 13:40] VITALS: BP 135/84; PULSE 70; RESP 16; TEMP 36.6; O2SAT 99
== END 2023-03-22 13:52 | disposition home or self-care (01) ==
PROVIDERS: Family Provider Family Medicine; PCP Family Medicine; Referring Provider Internal Medicine Gastroenterology; Visit Provider Internal Medicine Gastroenterology
PROC: 0DJ08ZZ Inspection of Upper Intestinal Tract, Via Natural or Artificial Opening Endoscopic (ICD-10-PCS; CPT 43235; principal; 2023-03-22 12:00)
DX: Z87.19 Personal history of other diseases of the digestive system (principal); Z87.11 Personal history of peptic ulcer disease; K31.9 Disease of stomach and duodenum, unspecified
CPT/HCPCS: 43239; J2704

== ENCOUNTER 2023-03-26 08:00 | Outpatient (RCR) | payer MEDICARE, SELFPAY ==
[2022-11-18 17:52] VITALS: BMI 24.7
--- NOTE | 2023-02-26 16:26 | PT.OIE ---
Current Diagnoses Other chronic pain (02/26/23) Pain in left knee (02/26/23) Low back pain, unspecified (02/26/23) Other abnormalities of gait and mobility (02/26/23) Past Medical History (Last Reviewed 02/03/23 @ 10:53 by Lyle Woods MD) Chronic low back pain Left knee pain Left leg pain Visit Care Team Role Provider Type Ronnie Ribera MD Family Provider Non-Staff Primary Care Provider Specialty: Medical Address: [address] [place] [address], [id number] Email: Gregg Plaza DO Attending Provider Physician Referring Provider Specialty: Physiatry Pain Management Address: [address] [place], [address] Email: [email or web address] Physical Therapy Initial Evaluation PT-OP-A Visit Information Start: 02/20/23 16:43 Freq: Status: Active Protocol: Document 02/26/23 08:17 LRN (Rec: 02/26/23 09:08 LRN [id number]) Out-Patient Physical Therapy Visit Information Visit Information Visit Type Initial Evaluation Visit Start Time 08:17 Visit Stop Time 09:06 Total Visit Minutes 49 Visit Number 1 Evaluation Information Evaluation Date 02/26/23 Precautions Precautions Osteoporosis. PT-OP-B Current Condition Start: 02/20/23 16:43 Freq: Status: Active Protocol: Document 02/26/23 08:17 LRN (Rec: 02/26/23 09:08 LRN [id number]) Current Condition History of Current Condition Onset Date 7 month ago Current Complaints L knee pain History of Current Condition Back pain on/off depending on what is happening. Has had back/neck pain for past 20 yrs . Sciatic started 15 yrs ago when began playing softball, started as pain in foot due to pulled ms in back and thighs. States back pain is sciatic pain. If lift too much heavy things of 20-25# or more. Knee started to bother her 7 months ago of insidious onset. States it feels like she has hyper extended her knee and had difficulty bending her knee. She has intermittent L knee, infrapatellar pain with walking and worsens with inclines and declines. Up and down stairs she has stiffness and sometimes painful. She has improved with time and no longer has the severe stiffness causing her to amb one step at a time. 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 Treatment Goals Patient/Caregiver Goals Pt goals: Learn ex's to help strengthen to eliminate the pain. -Walk to do 9 holes of golf. -Amb inclines/declines w/o pain. -Amb down stairs w/o pain on consistent basis. -HEP of back ex's. Be able to start yoga. 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 PT-OP-C Subjective Start: 02/20/23 16:43 Freq: Status: Active Protocol: Document 02/26/23 08:17 LRN (Rec: 02/26/23 09:08 LRN [id number]) Patient Questionnaires Lower Extremity Functional Scale LEFS Score 61 Oswestry Low Back Index Oswestry Score 26 OP-PT Pain Assessment Pain Assessment Grid Paper Pain Assessment Grid Completed Yes Location Low Back Pain Location Details Across low back at sacral level to R LE and top of foot Intensity 2 Scale Used Numeric (0 - 10) Description Radiating Description- Other Radiates down the R buttock to lateral hip/LE to top of foot Frequency Intermittent Pain Alleviating Factors Inactivity L knee Pain Location Details Inferopatellar tendon Intensity 2 Scale Used Numeric (0 - 10) Description Sharp Frequency Intermittent Pain Alleviating Factors Inactivity PT-OP-G Mobility & Gait Start: 02/20/23 16:43 Freq: Status: Active Protocol: Document 02/26/23 08:17 LRN (Rec: 02/26/23 09:08 LRN [id number]) OP Gait Assessment Gait Gait Assistance Required: Independent Assistive Devices Assistive Device None Gait Deviations General Gait Pattern Decreased Stride Length Factors Limiting Gait Function Factors Limiting Gait Function Decreased Activity Tolerance Comments Gait Comments Normal per patient. Stair Climbing Evaluation Comments Stair Climbing Comments Pain on Descending stairs. PT-OP-H Neuro Start: 02/20/23 16:43 Freq: Status: Active Protocol: Document 02/26/23 08:17 LRN (Rec: 02/26/23 09:08 LRN [id number]) Sensation Evaluation Gross Sensation Gross Sensation WNL PT-OP-J Posture/Palpation/Skin Start: 02/20/23 16:43 Freq: Status: Active Protocol: Document 02/26/23 08:17 LRN (Rec: 02/26/23 09:08 LRN [id number]) Posture Evaluation Position Standing L-Spine Posture Increased Lordosis Shoulder Posture (L) Elevated Pelvis Posture (R) Iliac Crest Superior Weight Distribution Weight Shifted Right Comments Posture Comments C curve of spine with R sided apex at L2-L3 Palpation Assessment Location Low Back Palpation Location Across low back at sacral level Palpation Details Tender at L2 SP, sacrum is R rotated, tight R hip muscles. L knee Palpation Location Infrapatellar tendon and anterior knee Palpation Findings Edema,Soft Tissue Tightness PT-OP-K Range of Motion Start: 02/20/23 16:43 Freq: Status: Active Protocol: Document 02/26/23 08:17 LRN (Rec: 02/26/23 09:08 LRN [id number]) Lumbar Spine Range of Motion Lumbar Spine Active Degrees Testing Position Standing Flexion 88 Extension 10 Rotation Left 15 Rotation Right 10 Lateral Flexion Left 5 Lateral Flexion Right 7 Comments No pain. Hip Goniometric Range of Motion Hip Right Passive Testing Position Supine Straight Leg Raise 90 Internal Rotation 15 External Rotation 60 Left Passive Testing Position Supine Straight Leg Raise 85 Internal Rotation 10 External Rotation 55 Knee Goniometric Range of Motion Knee Right Knee ROM WFL Yes Patient Position Sitting Flexion Active (degrees) 135 Flexion Passive (degrees) 140 Extension Active (degrees) 0 Left Knee ROM WFL Yes Patient Position Sitting and Supine Flexion Active (degrees) 128 Flexion Passive (degrees) 137 Extension Active (degrees) 0 Comments Pain around anterior knee. PT-OP-L Special Tests Start: 02/20/23 16:43 Freq: Status: Active Protocol: Document 02/26/23 08:17 LRN (Rec: 02/26/23 09:08 LRN [id number]) Special Tests Lumbar Spine Special Tests Straight Leg Raise Test Results - bilaterally Vertical Spine Loading Test Results - Comments No LBP elicited Knee Special Tests Varus- 25 Degrees Test Results - L knee Valgus- 25 Degrees Test Results - L knee Posterior Draw Test Results - L knee Anterior Draw Test Results - L knee Patellar Grind Test Test Results - L knee Neural Special Tests- Lower Body Sciatic Nerve Tension Test Results + neural tension bilaterally Comments Hamstring tightness PT-OP-M Strength Start: 02/20/23 16:43 Freq: Status: Active Protocol: Document 02/26/23 08:17 LRN (Rec: 02/26/23 18:55 LRN [id number]) Knee Strength Knee Manual Muscle Testing Right Flexion (S2) 5 Normal Extension (L3) 5 Normal Left Flexion (S2) 5 Normal Extension (L3) 5 Normal PT-OP-Q Treatments Start: 02/20/23 16:43 Freq: Status: Active Protocol: Document 02/26/23 08:17 LRN (Rec: 02/26/23 17:56 LRN [id number]) Therapeutic Exercises Sitting Exercises Piriformis stretch Sitting Exercise Name Piriformis stretch Side left Reps/Minutes 3' Comments Extra time needed to determine max tolerated stretch. Self-Care/Home Management Treatment Education Other Education Discussed results of evaluation, goals, and plan of care (POC). Pt agreeable to goals and POC. Activities Self-Care/Home Management Activities Pt I/S in to perform Piriformis stretch bilaterally and to continue her trunk FB stretch to comfort. PT-OP-T Assessment and Plan Start: 02/20/23 16:43 Freq: Status: Active Protocol: Document 02/26/23 08:17 LRN (Rec: 02/26/23 09:08 LRN [id number]) Physical Therapy Assessment Rehab Potential Rehabilitation Potential Good Evaluation Complexity Number of Personal Factors/Comorbidities 3 or More Number of Body Systems Impaired 4 or More Clinical Presentation at Evaluation Evolving Impairments Impairments Activity Tolerance,Edema, Functional Mobility,Gait,Pain, Posture,ROM,Soft Tissue Mobility Goals Three Impairment Decreased L knee flexion mobility limiting functional squat Impairment L knee pain with descending stairs and ambulating incline/ declines. Short Term Goal (STG) Pt will be able to amb down stairs w/o pain on consistent basis. STG Duration 04/12/23 Care Home Goal (LTG) Pt will be able to amb inclines/declines w/o pain. LTG Duration 05/27/23 Two Impairment L knee and R LE pain limiting ability for prolonged walking Impairment Walking results in L knee pain and occasional R sciatic pain . Short Term Goal (STG) Pt will be educated in proper Body mechanics for ADLs with focus on lifting to eliminate onset of R sciatic pain. STG Duration 04/12/23 Care Home Goal (LTG) Pt will be able to walk 9 holes of golf without pain. LTG Duration 05/27/23 One Impairment Pt lacks appropriate self care HEP. Short Term Goal (STG) Pt will be educated in self care pain/inflammation management with cold pack and RICE technique. STG Duration 04/12/23 Care Home Goal (LTG) Pt will be independent in an effective self care HEP for core/L knee strengthening and mobility ex's, and be able to start yoga exercises. LTG Duration 05/27/23 Assessment Summary Assessment Pt is a 67 yo female with primary complaints of insidious onset of L anterior knee joint pain that appears soft tissue related due to mild edema at the medial and lateral fat pads and the infrapatellar tendon; therefore possible infrapatellar tendonitis. I was able to reproduce her pain with end-range passive knee flexion, squatting, and when descending steps, but not with palpation. No complaints of back or R hip pain at the time of the evaluation, and I was not able to reproduce her pain , but she noted pain onset is with prolonged walking, and describes it as R sciatic pain . She demonstrates tightness of the R hip muscles, with a R sacral rotation and C-curve of the spine with apex on the left, indicating LBP due to mechanical and soft tissue dysfunction. The pt will benefit from skilled physical therapy for pain and inflammation management including modalities as needed , ROM and mobility ex's., core and L knee strengthening, posture training, gait/stair training, manual therapy, and pt education, HEP to achieve the above stated goals. Physical Therapy Plan Frequency and Duration Frequency of Treatment 2x/Week Plan of Care Start Date 02/26/23 Plan of Care End Date 04/12/23 Therapeutic Interventions Therapeutic Interventions Gait Training,Home Exercise Program,Manual Therapy, Neuromuscular Re-education, Patient/Caregiver Education, Self-Care/Home Management,Soft Tissue Mobilization,Taping, Therapeutic Activities, Therapeutic Exercises Modalities Cold Pack/Ice Massage,Electric Stimulation,Hot Packs, Ultrasound Next Visit Focus/Plan Next Note Type Treatment Note Next Visit Plan Assess hip and core strength and issue HEP as needed, L/S tests for SIJ dysfunction. HEP/ROM: Mobility: Trunk flex & rot, hip IR/ER, knee flexion; Sciatic n. glides. Strengthening (upright bike)-L knee (caution: hx osteoporosis), postural ex's for kyphosis. Modalities: US to L infrapatellar tendon. Manual: Piriformis PING stretch, MWM with stairs (no mobs due to Osteoporosis). Stair training for descending steps w/o pain. Pt education: pain and inflammation management, transfer with equal WBing.
--- NOTE | 2023-02-26 16:26 | PT.OPPOC ---
Physical, Occupational & Speech Therapy At [facility] Current Diagnoses Other chronic pain (02/26/23) Pain in left knee (02/26/23) Low back pain, unspecified (02/26/23) Other abnormalities of gait and mobility (02/26/23) Visit Care Team Role Provider Type Ronnie Ribera MD Family Provider Non-Staff Primary Care Provider Specialty: Medical Address: [address] [place] [address], [phone] Email: Gregg Plaza DO Attending Provider Physician Referring Provider Specialty: Physiatry Pain Management Address: [address] [place], [address] Email: [email or web address] Plan Of Care PT-OP-T Assessment and Plan Start: 02/20/23 16:43 Freq: Status: Active Protocol: Document 02/26/23 08:17 LRN (Rec: 02/26/23 09:08 LRN [id number]) Physical Therapy Assessment Rehab Potential Rehabilitation Potential Good Evaluation Complexity Number of Personal Factors/Comorbidities 3 or More Number of Body Systems Impaired 4 or More Clinical Presentation at Evaluation Evolving Impairments Impairments Activity Tolerance,Edema, Functional Mobility,Gait,Pain, Posture,ROM,Soft Tissue Mobility Goals Three Impairment Decreased L knee flexion mobility limiting functional squat Impairment L knee pain with descending stairs and ambulating incline/ declines. Short Term Goal (STG) Pt will be able to amb down stairs w/o pain on consistent basis. STG Duration 04/12/23 Longterm Goal (LTG) Pt will be able to amb inclines/declines w/o pain. LTG Duration 05/27/23 Two Impairment L knee and R LE pain limiting ability for prolonged walking Impairment Walking results in L knee pain and occasional R sciatic pain . Short Term Goal (STG) Pt will be educated in proper Body mechanics for ADLs with focus on lifting to eliminate onset of R sciatic pain. STG Duration 04/12/23 Longterm Goal (LTG) Pt will be able to walk 9 holes of golf without pain. LTG Duration 05/27/23 One Impairment Pt lacks appropriate self care HEP. Short Term Goal (STG) Pt will be educated in self care pain/inflammation management with cold pack and RICE technique. STG Duration 04/12/23 Human Resources Consultant Goal (LTG) Pt will be independent in an effective self care HEP for core/L knee strengthening and mobility ex's, and be able to start yoga exercises. LTG Duration 05/27/23 Assessment Summary Assessment Pt is a 67 yo female with primary complaints of insidious onset of L anterior knee joint pain that appears soft tissue related due to mild edema at the medial and lateral fat pads and the infrapatellar tendon; therefore possible infrapatellar tendonitis. I was able to reproduce her pain with end-range passive knee flexion, squatting, and when descending steps, but not with palpation. No complaints of back or R hip pain at the time of the evaluation, and I was not able to reproduce her pain , but she noted pain onset is with prolonged walking, and describes it as R sciatic pain . She demonstrates tightness of the R hip muscles, with a R sacral rotation and C-curve of the spine with apex on the left, indicating LBP due to mechanical and soft tissue dysfunction. The pt will benefit from skilled physical therapy for pain and inflammation management including modalities as needed , ROM and mobility ex's., core and L knee strengthening, posture training, gait/stair training, manual therapy, and pt education, HEP to achieve the above stated goals. Physical Therapy Plan Frequency and Duration Frequency of Treatment 2x/Week Plan of Care Start Date 02/26/23 Plan of Care End Date 04/12/23 Therapeutic Interventions Therapeutic Interventions Gait Training,Home Exercise Program,Manual Therapy, Neuromuscular Re-education, Patient/Caregiver Education, Self-Care/Home Management,Soft Tissue Mobilization,Taping, Therapeutic Activities, Therapeutic Exercises Modalities Cold Pack/Ice Massage,Electric Stimulation,Hot Packs, Ultrasound Next Visit Focus/Plan Next Note Type Treatment Note Next Visit Plan Assess hip and core strength and issue HEP as needed, L/S tests for SIJ dysfunction. HEP/ROM: Mobility: Trunk flex & rot, hip IR/ER, knee flexion; Sciatic n. glides. Strengthening (upright bike)-L knee (caution: hx osteoporosis), postural ex's for kyphosis. Modalities: US to L infrapatellar tendon. Manual: Piriformis PING stretch, MWM with stairs (no mobs due to Osteoporosis). Stair training for descending steps w/o pain. Pt education: pain and inflammation management, transfer with equal WBing. Plan of Care Dates Plan of Care Start Date 02/26/23 Plan of Care End Date 04/12/23 Electronically Signed by: Windy Hurtado, PT 02/27/23 6732 If you are in agreement with this Plan of Care, please return a signed and dated copy. I have reviewed this Plan of Care and certify that the skilled therapy services above are required to meet the patient?s needs. Physician Signature Date Printed Name and Credentials Clinical Instructor Signature Printed Name and Credentials
--- NOTE | 2023-03-09 16:31 | PT.OTN ---
Current Diagnoses Other chronic pain (03/09/23) Pain in left knee (03/09/23) Low back pain, unspecified (03/09/23) Other abnormalities of gait and mobility (03/09/23) Physical Therapy Treatment Note PT-OP-A Visit Information Start: 02/20/23 16:43 Freq: Status: Active Protocol: Document 03/09/23 11:19 LRN (Rec: 03/09/23 12:20 LRN [id number]) Out-Patient Physical Therapy Visit Information Visit Information Visit Type Treatment Note Visit Start Time 11:19 Visit Stop Time 12:03 Total Visit Minutes 43 Visit Number 2 Evaluation Information Evaluation Date 02/26/23 Precautions Precautions Osteoporosis. PT-OP-B Current Condition Start: 02/20/23 16:43 Freq: Status: Active Protocol: Document 02/26/23 08:17 LRN (Rec: 02/26/23 09:08 LRN [id number]) Current Condition History of Current Condition Onset Date 7 month ago Current Complaints L knee pain History of Current Condition Back pain on/off depending on what is happening. Has had back/neck pain for past 20 yrs . Sciatic started 15 yrs ago when began playing softball, started as pain in foot due to pulled ms in back and thighs. States back pain is sciatic pain. If lift too much heavy things of 20-25# or more. Knee started to bother her 7 months ago of insidious onset. States it feels like she has hyper extended her knee and had difficulty bending her knee. She has intermittent L knee, infrapatellar pain with walking and worsens with inclines and declines. Up and down stairs she has stiffness and sometimes painful. She has improved with time and no longer has the severe stiffness causing her to amb one step at a time. 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 Treatment Goals Patient/Caregiver Goals Pt goals: Learn ex's to help strengthen to eliminate the pain. -Walk to do 9 holes of golf. -Amb inclines/declines w/o pain. -Amb down stairs w/o pain on consistent basis. -HEP of back ex's. Be able to start yoga. 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 PT-OP-C Subjective Start: 02/20/23 16:43 Freq: Status: Active Protocol: Document 03/09/23 11:19 LRN (Rec: 03/09/23 12:20 LRN [id number]) OP-PT Subjective Patient Comments Patient Comments L hip is bothering her more at nights. Toothache pain. Did a little more walking that before. Currently L anterolateral hip pain is rated 1-2/10. Last night wasn 't bad, but the 2 previous nights it was bad at 5/10. L hip clicks or pops sometimes walking. PT-OP-G Mobility & Gait Start: 02/20/23 16:43 Freq: Status: Active Protocol: Document 02/26/23 08:17 LRN (Rec: 02/26/23 09:08 LRN [id number]) OP Gait Assessment Gait Gait Assistance Required: Independent Assistive Devices Assistive Device None Gait Deviations General Gait Pattern Decreased Stride Length Factors Limiting Gait Function Factors Limiting Gait Function Decreased Activity Tolerance Comments Gait Comments Normal per patient. Stair Climbing Evaluation Comments Stair Climbing Comments Pain on Descending stairs. PT-OP-H Neuro Start: 02/20/23 16:43 Freq: Status: Active Protocol: Document 02/26/23 08:17 LRN (Rec: 02/26/23 09:08 LRN [id number]) Sensation Evaluation Gross Sensation Gross Sensation WNL PT-OP-J Posture/Palpation/Skin Start: 02/20/23 16:43 Freq: Status: Active Protocol: Document 02/26/23 08:17 LRN (Rec: 02/26/23 09:08 LRN [id number]) Posture Evaluation Position Standing L-Spine Posture Increased Lordosis Shoulder Posture (L) Elevated Pelvis Posture (R) Iliac Crest Superior Weight Distribution Weight Shifted Right Comments Posture Comments C curve of spine with R sided apex at L2-L3 Palpation Assessment Location Low Back Palpation Location Across low back at sacral level Palpation Details Tender at L2 SP, sacrum is R rotated, tight R hip muscles. L knee Palpation Location Infrapatellar tendon and anterior knee Palpation Findings Edema,Soft Tissue Tightness PT-OP-K Range of Motion Start: 02/20/23 16:43 Freq: Status: Active Protocol: Document 03/09/23 11:19 LRN (Rec: 03/09/23 12:20 LRN [id number]) Hip Goniometric Range of Motion Hip Right Passive Testing Position Supine Straight Leg Raise 90 Extension 0 Abduction 30 Internal Rotation 10 External Rotation 75 Left Passive Testing Position Supine Straight Leg Raise 85 Extension 2 Abduction 25 Internal Rotation 30 External Rotation 70 PT-OP-L Special Tests Start: 02/20/23 16:43 Freq: Status: Active Protocol: Document 02/26/23 08:17 LRN (Rec: 02/26/23 09:08 LRN [id number]) Special Tests Lumbar Spine Special Tests Straight Leg Raise Test Results - bilaterally Vertical Spine Loading Test Results - Comments No LBP elicited Knee Special Tests Varus- 25 Degrees Test Results - L knee Valgus- 25 Degrees Test Results - L knee Posterior Draw Test Results - L knee Anterior Draw Test Results - L knee Patellar Grind Test Test Results - L knee Neural Special Tests- Lower Body Sciatic Nerve Tension Test Results + neural tension bilaterally Comments Hamstring tightness PT-OP-M Strength Start: 02/20/23 16:43 Freq: Status: Active Protocol: Document 03/09/23 11:19 LRN (Rec: 03/09/23 12:20 LRN [id number]) Hip Strength Hip Manual Muscle Testing Right Flexion (L2) 5 Normal Extension (S1) 3 Fair Abduction 5 Normal Adduction 2 Poor External Rotation 4+ Good+ Internal Rotation 5 Normal Comments Decreased hip ext mobility. Left Flexion (L2) 3+ Fair+ Extension (S1) 5 Normal Abduction 5 Normal Adduction 2 Poor External Rotation 4+ Good+ Internal Rotation 3 Fair Comments Decreased hip ext mobility PT-OP-Q Treatments Start: 02/20/23 16:43 Freq: Status: Active Protocol: Document 03/09/23 11:19 LRN (Rec: 03/09/23 12:20 LRN [id number]) Therapeutic Exercises Supine Exercises Hip ER stretch Supine Exercise Name Hip ER stretch, L>R Side bilateral Reps/Minutes 1x Hip IR stretch Supine Exercise Name Hip IR stretch, R>L Side bilateral Reps/Minutes 2x Hip Flex Supine Exercise Name Hip Flex Side bilateral Reps/Minutes 2x Comments MMT & ROM taken Prone Exercises Hip Ext Prone Exercise Name Hip Ext Side bilateral Reps/Minutes 15x Comments MMT & ROM taken. Cuing for core/pelvis stab, abds tight Sidelying Exercises Hip AB Sidelying Exercise Name Hip AB Side bilateral Reps/Minutes 2x Comments MMT & ROM taken Hip AD Sidelying Exercise Name Mega hip AD Side bilateral Reps/Minutes 15x 2 L, 15x R Comments MMT & ROM taken. Pt had L inferior patellar pain w/DF'd foot Sitting Exercises Hip ER Sitting Exercise Name Hip ER Tenisha holding Side bilateral Comments MMT taken. Hip IR Sitting Exercise Name Hip IR Tenisha holding Side bilateral Comments MMT taken. Knee flexion Sitting Exercise Name Knee flexion strengthening Side left Equipment Used Green TBand Reps/Minutes 30x Self-Care/Home Management Treatment Education Patient Education Home Exercise Program Other Education Discussed pt use of e-bike and precauions of use. Pt has been riding 10 miles with e- bike, last time rode was 3-4 weeks ago. Educated & discussed use of ice/heat and RICE protocol for pain management. Activities Self-Care/Home Management Activities Issued & reviewed HEP: Hip AD , Ext and knee flex strengthening. Handouts issued for hot/cold treatment and RICE self treatment. PT-OP-T Assessment and Plan Start: 02/20/23 16:43 Freq: Status: Active Protocol: Document 03/09/23 11:19 LRN (Rec: 03/09/23 12:20 LRN [id number]) Physical Therapy Assessment Goals Three Impairment Decreased L knee flexion mobility limiting functional squat Impairment L knee pain with descending stairs and ambulating incline/ declines. Short Term Goal (STG) Pt will be able to amb down stairs w/o pain on consistent basis. STG Duration 04/12/23 Correction Goal (LTG) Pt will be able to amb inclines/declines w/o pain. LTG Duration 05/27/23 Two Impairment L knee and R LE pain limiting ability for prolonged walking Impairment Walking results in L knee pain and occasional R sciatic pain . Short Term Goal (STG) Pt will be educated in proper Body mechanics for ADLs with focus on lifting to eliminate onset of R sciatic pain. STG Duration 04/12/23 Torts Law Professor Goal (LTG) Pt will be able to walk 9 holes of golf without pain. LTG Duration 05/27/23 One Impairment Pt lacks appropriate self care HEP. Short Term Goal (STG) Pt will be educated in self care pain/inflammation management with cold pack and RICE technique. STG Duration 04/12/23 (03/09/23: MET GOAL) [employer]orts Law Professor Goal (LTG) Pt will be independent in an effective self care HEP for core/L knee strengthening and mobility ex's, and be able to start yoga exercises. 03/09/23: HEP: Hip AD, Ext; knee flex (TBand - [place] green issued). LTG Duration 05/27/23 progressed 03/09/23 Progress Towards Goals Progress Comments Pt Education for STG #1 MET. Progressed HEP. Assessment Summary Assessment Insidious onset of L anterior knee joint pain that appears soft tissue related due to mild edema at the medial and lateral fat pads and the infrapatellar tendon, Decreased mobility with hip ext, R ER, L IR (20 deg's) and weakness of hips in variable areas, possibly back related. Pt may have knee pain related to the back, but also shows signs of L capsular involvement, but further assessment is needed. Physical Therapy Plan Frequency and Duration Frequency of Treatment 2x/Week Plan of Care Start Date 02/26/23 Plan of Care End Date 04/12/23 Next Visit Focus/Plan Next Note Type Treatment Note Next Visit Plan Assess core strength and issue HEP as needed, L/S tests for SIJ dysfunction. Pt education: transfer with equal WBing, proper Body mechanics for ADLs with focus on lifting to eliminate onset of R sciatic pain. HEP/ROM: Mobility: Trunk flex & rot, hip (ext, IR L/ER R, knee flexion; Sciatic n. glides. Strengthening (upright bike)-L knee (caution: hx osteoporosis), postural ex's for kyphosis. Modalities: US to L infrapatellar tendon. Manual: Piriformis PING stretch, MWM with stairs (no mobs due to Osteoporosis). Stair training for descending steps w/o pain.
--- NOTE | 2023-03-12 17:17 | PT.OTN ---
Current Diagnoses Other chronic pain (03/12/23) Pain in left knee (03/12/23) Low back pain, unspecified (03/12/23) Other abnormalities of gait and mobility (03/12/23) Physical Therapy Treatment Note PT-OP-A Visit Information Start: 02/20/23 16:43 Freq: Status: Active Protocol: Document 03/12/23 08:56 LRN (Rec: 03/12/23 09:41 LRN [id number]) Out-Patient Physical Therapy Visit Information Visit Information Visit Type Treatment Note Visit Start Time 08:56 Visit Stop Time 09:36 Total Visit Minutes 40 Visit Number 3 Evaluation Information Evaluation Date 02/26/23 Precautions Precautions Osteoporosis. PT-OP-B Current Condition Start: 02/20/23 16:43 Freq: Status: Active Protocol: Document 02/26/23 08:17 LRN (Rec: 02/26/23 09:08 LRN [id number]) Current Condition History of Current Condition Onset Date 7 month ago Current Complaints L knee pain History of Current Condition Back pain on/off depending on what is happening. Has had back/neck pain for past 20 yrs . Sciatic started 15 yrs ago when began playing softball, started as pain in foot due to pulled ms in back and thighs. States back pain is sciatic pain. If lift too much heavy things of 20-25# or more. Knee started to bother her 7 months ago of insidious onset. States it feels like she has hyper extended her knee and had difficulty bending her knee. She has intermittent L knee, infrapatellar pain with walking and worsens with inclines and declines. Up and down stairs she has stiffness and sometimes painful. She has improved with time and no longer has the severe stiffness causing her to amb one step at a time. 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 Treatment Goals Patient/Caregiver Goals Pt goals: Learn ex's to help strengthen to eliminate the pain. -Walk to do 9 holes of golf. -Amb inclines/declines w/o pain. -Amb down stairs w/o pain on consistent basis. -HEP of back ex's. Be able to start yoga. 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 PT-OP-C Subjective Start: 02/20/23 16:43 Freq: Status: Active Protocol: Document 03/12/23 08:56 LRN (Rec: 03/12/23 09:41 LRN [id number]) OP-PT Subjective Patient Comments Patient Comments Hip not aching as before. L knee not aching, but hasn't been walking. PT-OP-G Mobility & Gait Start: 02/20/23 16:43 Freq: Status: Active Protocol: Document 02/26/23 08:17 LRN (Rec: 02/26/23 09:08 LRN [id number]) OP Gait Assessment Gait Gait Assistance Required: Independent Assistive Devices Assistive Device None Gait Deviations General Gait Pattern Decreased Stride Length Factors Limiting Gait Function Factors Limiting Gait Function Decreased Activity Tolerance Comments Gait Comments Normal per patient. Stair Climbing Evaluation Comments Stair Climbing Comments Pain on Descending stairs. PT-OP-H Neuro Start: 02/20/23 16:43 Freq: Status: Active Protocol: Document 02/26/23 08:17 LRN (Rec: 02/26/23 09:08 LRN [id number]) Sensation Evaluation Gross Sensation Gross Sensation WNL PT-OP-J Posture/Palpation/Skin Start: 02/20/23 16:43 Freq: Status: Active Protocol: Document 02/26/23 08:17 LRN (Rec: 02/26/23 09:08 LRN [id number]) Posture Evaluation Position Standing L-Spine Posture Increased Lordosis Shoulder Posture (L) Elevated Pelvis Posture (R) Iliac Crest Superior Weight Distribution Weight Shifted Right Comments Posture Comments C curve of spine with R sided apex at L2-L3 Palpation Assessment Location Low Back Palpation Location Across low back at sacral level Palpation Details Tender at L2 SP, sacrum is R rotated, tight R hip muscles. L knee Palpation Location Infrapatellar tendon and anterior knee Palpation Findings Edema,Soft Tissue Tightness PT-OP-K Range of Motion Start: 02/20/23 16:43 Freq: Status: Active Protocol: Document 03/09/23 11:19 LRN (Rec: 03/09/23 12:20 LRN [id number]) Hip Goniometric Range of Motion Hip Right Passive Testing Position Supine Straight Leg Raise 90 Extension 0 Abduction 30 Internal Rotation 10 External Rotation 75 Left Passive Testing Position Supine Straight Leg Raise 85 Extension 2 Abduction 25 Internal Rotation 30 External Rotation 70 PT-OP-L Special Tests Start: 02/20/23 16:43 Freq: Status: Active Protocol: Document 02/26/23 08:17 LRN (Rec: 02/26/23 09:08 LRN [id number]) Special Tests Lumbar Spine Special Tests Straight Leg Raise Test Results - bilaterally Vertical Spine Loading Test Results - Comments No LBP elicited Knee Special Tests Varus- 25 Degrees Test Results - L knee Valgus- 25 Degrees Test Results - L knee Posterior Draw Test Results - L knee Anterior Draw Test Results - L knee Patellar Grind Test Test Results - L knee Neural Special Tests- Lower Body Sciatic Nerve Tension Test Results + neural tension bilaterally Comments Hamstring tightness PT-OP-M Strength Start: 02/20/23 16:43 Freq: Status: Active Protocol: Document 03/09/23 11:19 LRN (Rec: 03/09/23 12:20 LRN [id number]) Hip Strength Hip Manual Muscle Testing Right Flexion (L2) 5 Normal Extension (S1) 3 Fair Abduction 5 Normal Adduction 2 Poor External Rotation 4+ Good+ Internal Rotation 5 Normal Comments Decreased hip ext mobility. Left Flexion (L2) 3+ Fair+ Extension (S1) 5 Normal Abduction 5 Normal Adduction 2 Poor External Rotation 4+ Good+ Internal Rotation 3 Fair Comments Decreased hip ext mobility PT-OP-Q Treatments Start: 02/20/23 16:43 Freq: Status: Active Protocol: Document 03/12/23 08:56 LRN (Rec: 03/12/23 09:41 LRN [id number]) Cardio Equipment Treadmill Duration (Minutes) 10 Speed 1.5>1.7>1.9>2.0 Incline 0 Therapeutic Exercises Supine Exercises Hip ER stretch Supine Exercise Name Fig 4 stretch Side bilateral Reps/Minutes 60 stretch x 1-2 - w/ankle AROM x10, knee ER x10, breaths x 10 Comments Extra time needed to determine max ronni stretch and to learn technique Hip IR stretch Supine Exercise Name Piriformis: 2 positions tried: 1)R ankle over L knee, 2) knee roll inward Side right Reps/Minutes with each x 2: w/ankle AROM, breathing, active stretch Comments Extra time needed to determine max ronni stretch and to learn technique Manual Therapy Treatment Soft Tissue Mobilization Hip ER Body Location Sakina Hip ER assisted stretch Body Position Supine Comments Pain at sakina groin with stretch Joint Mobilizations SIJ Joint Sakina SIJ: Gentle Approximation /Distraction sakina sidelie Body Position Side & sup Reps/Duration 5' Self-Care/Home Management Treatment Education Patient Education Home Exercise Program Activities Self-Care/Home Management Activities Issued & reviewed HEP: HIp stretches: R Piriformis, L Fig 4, R PT-OP-T Assessment and Plan Start: 02/20/23 16:43 Freq: Status: Active Protocol: Document 03/12/23 08:56 LRN (Rec: 03/12/23 09:41 LRN [id number]) Physical Therapy Assessment Goals Three Impairment Decreased L knee flexion mobility limiting functional squat Impairment L knee pain with descending stairs and ambulating incline/ declines. Short Term Goal (STG) Pt will be able to amb down stairs w/o pain on consistent basis. STG Duration 04/12/23 Fdc Goal (LTG) Pt will be able to amb inclines/declines w/o pain. LTG Duration 05/27/23 Two Impairment L knee and R LE pain limiting ability for prolonged walking Impairment Walking results in L knee pain and occasional R sciatic pain . Short Term Goal (STG) Pt will be educated in proper Body mechanics for ADLs with focus on lifting to eliminate onset of R sciatic pain. STG Duration 04/12/23 Boat Canvas Maker Installer Goal (LTG) Pt will be able to walk 9 holes of golf without pain. LTG Duration 05/27/23 One Impairment Pt lacks appropriate self care HEP. Short Term Goal (STG) Pt will be educated in self care pain/inflammation management with cold pack and RICE technique. STG Duration 04/12/23 (03/09/23: MET GOAL) Fdc Goal (LTG) Pt will be independent in an effective self care HEP for core/L knee strengthening and mobility ex's, and be able to start yoga exercises. 03/09/23: HEP: Hip AD, Ext; knee flex (TBand - [place] green issued). 03/12/23: HEP: Fig 4 on L, Piriformis on R. LTG Duration 05/27/23 progressed 03/12/23 Assessment Summary Assessment SIJ assessment is negative, but possible innominate dysfunction. Pt R leg long in longsit and supine. Pain with hip stretches in groin bilaterally. Pt having no hip or knee pain; therefore no assessment on L/S needed. Able to amb on TM x 10' w/o pain. Physical Therapy Plan Frequency and Duration Frequency of Treatment 2x/Week Plan of Care Start Date 02/26/23 Plan of Care End Date 04/12/23 Next Visit Focus/Plan Next Note Type Treatment Note Next Visit Plan Next: PN to [place]. Measure leg length and assess innominate positioning. Assess core strength and issue HEP if needed for SIJ dysfunction. Pt education: transfer with equal WBing, proper Body mechanics for ADLs with focus on lifting to eliminate onset of R sciatic pain. HEP/ROM: Mobility: Trunk flex & rot, hip (ext, IR L/ER R, knee flexion; Sciatic n. glides. Strengthening (upright bike)-L knee (caution: hx osteoporosis), postural ex's for kyphosis. Modalities as needed: US to L infrapatellar tendon. Manual: Piriformis PING stretch, MWM with stairs (no mobs due to Osteoporosis). Stair training for descending steps w/o pain.
--- NOTE | 2023-03-16 12:54 | PT.OTN ---
Current Diagnoses Other chronic pain (03/16/23) Pain in left knee (03/16/23) Low back pain, unspecified (03/16/23) Other abnormalities of gait and mobility (03/16/23) Physical Therapy Treatment Note PT-OP-A Visit Information Start: 02/20/23 16:43 Freq: Status: Active Protocol: Document 03/16/23 08:00 LRN (Rec: 03/16/23 08:46 LRN [id number]) Out-Patient Physical Therapy Visit Information Visit Information Visit Type Progress Note Visit Start Time 09:00 Visit Stop Time 08:42 Total Visit Minutes 44 Visit Number 4 Evaluation Information Evaluation Date 02/26/23 Precautions Precautions Osteoporosis. PT-OP-B Current Condition Start: 02/20/23 16:43 Freq: Status: Active Protocol: Document 02/26/23 08:17 LRN (Rec: 02/26/23 09:08 LRN [id number]) Current Condition History of Current Condition Onset Date 7 month ago Current Complaints L knee pain History of Current Condition Back pain on/off depending on what is happening. Has had back/neck pain for past 20 yrs . Sciatic started 15 yrs ago when began playing softball, started as pain in foot due to pulled ms in back and thighs. States back pain is sciatic pain. If lift too much heavy things of 20-25# or more. Knee started to bother her 7 months ago of insidious onset. States it feels like she has hyper extended her knee and had difficulty bending her knee. She has intermittent L knee, infrapatellar pain with walking and worsens with inclines and declines. Up and down stairs she has stiffness and sometimes painful. She has improved with time and no longer has the severe stiffness causing her to amb one step at a time. 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 Treatment Goals Patient/Caregiver Goals Pt goals: Learn ex's to help strengthen to eliminate the pain. -Walk to do 9 holes of golf. -Amb inclines/declines w/o pain. -Amb down stairs w/o pain on consistent basis. -HEP of back ex's. Be able to start yoga. 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 PT-OP-C Subjective Start: 02/20/23 16:43 Freq: Status: Active Protocol: Document 03/16/23 08:00 LRN (Rec: 03/16/23 08:46 LRN [id number]) OP-PT Subjective Patient Comments Patient Comments L knee has been feeling good. Lifting and moving boxes for garage sale and had shooting pain into the arch of the L foot. PT-OP-G Mobility & Gait Start: 02/20/23 16:43 Freq: Status: Active Protocol: Document 02/26/23 08:17 LRN (Rec: 02/26/23 09:08 LRN [id number]) OP Gait Assessment Gait Gait Assistance Required: Independent Assistive Devices Assistive Device None Gait Deviations General Gait Pattern Decreased Stride Length Factors Limiting Gait Function Factors Limiting Gait Function Decreased Activity Tolerance Comments Gait Comments Normal per patient. Stair Climbing Evaluation Comments Stair Climbing Comments Pain on Descending stairs. PT-OP-H Neuro Start: 02/20/23 16:43 Freq: Status: Active Protocol: Document 02/26/23 08:17 LRN (Rec: 02/26/23 09:08 LRN [id number]) Sensation Evaluation Gross Sensation Gross Sensation WNL PT-OP-J Posture/Palpation/Skin Start: 02/20/23 16:43 Freq: Status: Active Protocol: Document 03/16/23 08:00 LRN (Rec: 03/16/23 08:46 LRN [id number]) Palpation Assessment Location Leg lengths Palpation Location ASIS to medial mallelus Palpation Details 82 cm left, 83 cm right. PT-OP-K Range of Motion Start: 02/20/23 16:43 Freq: Status: Active Protocol: Document 03/09/23 11:19 LRN (Rec: 03/09/23 12:20 LRN [id number]) Hip Goniometric Range of Motion Hip Right Passive Testing Position Supine Straight Leg Raise 90 Extension 0 Abduction 30 Internal Rotation 10 External Rotation 75 Left Passive Testing Position Supine Straight Leg Raise 85 Extension 2 Abduction 25 Internal Rotation 30 External Rotation 70 PT-OP-L Special Tests Start: 02/20/23 16:43 Freq: Status: Active Protocol: Document 02/26/23 08:17 LRN (Rec: 02/26/23 09:08 LRN [id number]) Special Tests Lumbar Spine Special Tests Straight Leg Raise Test Results - bilaterally Vertical Spine Loading Test Results - Comments No LBP elicited Knee Special Tests Varus- 25 Degrees Test Results - L knee Valgus- 25 Degrees Test Results - L knee Posterior Draw Test Results - L knee Anterior Draw Test Results - L knee Patellar Grind Test Test Results - L knee Neural Special Tests- Lower Body Sciatic Nerve Tension Test Results + neural tension bilaterally Comments Hamstring tightness PT-OP-M Strength Start: 02/20/23 16:43 Freq: Status: Active Protocol: Document 03/09/23 11:19 LRN (Rec: 03/09/23 12:20 LRN [id number]) Hip Strength Hip Manual Muscle Testing Right Flexion (L2) 5 Normal Extension (S1) 3 Fair Abduction 5 Normal Adduction 2 Poor External Rotation 4+ Good+ Internal Rotation 5 Normal Comments Decreased hip ext mobility. Left Flexion (L2) 3+ Fair+ Extension (S1) 5 Normal Abduction 5 Normal Adduction 2 Poor External Rotation 4+ Good+ Internal Rotation 3 Fair Comments Decreased hip ext mobility PT-OP-Q Treatments Start: 02/20/23 16:43 Freq: Status: Active Protocol: Document 03/16/23 08:00 LRN (Rec: 03/16/23 08:46 LR [id number]) Cardio Equipment Bicycle (Upright) Duration (Minutes) 4 Resistance 5 Seat Position 4-5 Other Neutral spine training, cuing for rpm 70 or above Therapeutic Exercises Supine Exercises Deep Breathing Supine Exercise Name Deep & Normal Breathing with chest expansion/arms & core stab. Side bilateral Reps/Minutes 5' standing, 4' supine Comments Pt needed much phys & v cuing with added UE movements TA tightening in neutral spine position Supine Exercise Name TA tightening in neutral spine position Reps/Minutes 9' Comments V & phys cuing needed to obtain n. spine with TA/ paraspinals tight Neutral spine training Supine Exercise Name Neutral spine training Reps/Minutes 5' DKTC Supine Exercise Name DKTC Reps/Minutes 10 SH, 2' Comments Extra time taken to determine proper stretch and max ronni stretch Standing Exercises Breathing with core stable Standing Exercise Name Chest breathing with core stab training Equipment Used Mirror, self phys cuing Reps/Minutes 10' Comments Much v cuing and much training given. Self-Care/Home Management Treatment Education Patient Education Body Mechanics Caregiver Education Educated and discussed proper body mechanics for daily activities. Other Education Issued & reviewed body mechanics for daily activities PT-OP-T Assessment and Plan Start: 02/20/23 16:43 Freq: Status: Active Protocol: Document 03/16/23 08:00 LRN (Rec: 03/16/23 08:46 LRN [id number]) Physical Therapy Assessment Rehab Potential Rehabilitation Potential Good Evaluation Complexity Number of Personal Factors/Comorbidities 3 or More Number of Body Systems Impaired 4 or More Clinical Presentation at Evaluation Evolving Impairments Impairments Activity Tolerance,Edema, Functional Mobility,Gait,Pain, Posture,ROM,Soft Tissue Mobility Goals Three Impairment Decreased L knee flexion mobility limiting functional squat Impairment L knee pain with descending stairs and ambulating incline/ declines. Short Term Goal (STG) Pt will be able to amb down stairs w/o pain on consistent basis. 03/16/23: No L knee pain for past week w/o pain. STG Duration 04/12/23 03/16/23: MET GOAL Crane Hooker Goal (LTG) Pt will be able to amb inclines/declines w/o pain. 03/16/23: Pain mainly with declines, a little with incline. LTG Duration 05/27/23 progressing 03/16/23 . Two Impairment L knee and R LE pain limiting ability for prolonged walking Impairment Walking results in L knee pain and occasional R sciatic pain . Short Term Goal (STG) Pt will be educated in proper Body mechanics for ADLs with focus on lifting to eliminate onset of R sciatic pain. STG Duration 04/12/23 (03/16/23: MET GOAL) Residential Goal (LTG) Pt will be able to walk 9 holes of golf without back or LE pain. LTG Duration 05/27/23 One Impairment Pt lacks appropriate self care HEP. Short Term Goal (STG) Pt will be educated in self care pain/inflammation management with cold pack and RICE technique. STG Duration 04/12/23 (03/09/23: MET GOAL) Crane Hooker Goal (LTG) Pt will be independent in an effective self care HEP for core/L knee strengthening and mobility ex's, and be able to start yoga exercises. 03/09/23: HEP: Hip AD, Ext; knee flex (TBand - [place] issued). 03/12/23: HEP: Fig 4 on L, Piriformis on R. LTG Duration 05/27/23 progressed 03/12/23 Assessment Summary Assessment Insidious onset of L anterior knee joint pain that appears to have resolved over the last week after return to prior functional activities. She has had onset of LBP and shooting pain from LB into the L medial arch of the foot. It was difficult teaching pt neutral spine control of position, and to how to stabilize core during breathing. Pt was not able to fully perform breathing with stable core, but showed some improvement after much training in sup & standing. Further training is needed. Her legs do not appear to have a significant leg length difference; therefore SIJ dysfunction doesn't appear to be a reason for her LE pain. She does have hip ms tightness with indications of possible sacral rotation resulting in L foot pain and occasional LE pain. Poor core stab is probably the reason for some of her LBP as well as poor body mechanics as she is not able to maintain a neutral spine with ADLs; therefore it is recommended that the pt continue skilled physical therapy for pt education, training and strengthening of her core muscles and educate pt in proper posture and body mechanics as well as ROM ex's to her core. Physical Therapy Plan Frequency and Duration Frequency of Treatment 2x/Week Plan of Care Start Date 03/16/23 Plan of Care End Date 05/27/23 Therapeutic Interventions Therapeutic Interventions Joint Mobilizations Modalities Cold Pack/Ice Massage,Electric Stimulation,Hot Packs, Ultrasound Next Visit Focus/Plan Next Note Type Treatment Note Next Visit Plan Assess core strength and issue HEP if needed for sacral dysfunction. Pt education: transfer with equal WBing, and with focus on lifting to eliminate onset of R sciatic pain. Cont strengthening: upright bike-L knee (caution: hx osteoporosis) and start hamstring strengthening. HEP/ROM: Mobility: Trunk flex & rot, hip (ext, IR L/ER R, knee flexion; Sciatic n. glides, postural ex's for kyphosis. Modalities as needed: US to L infrapatellar tendon. Manual: Piriformis PING stretch, MWM with stairs (no mobs due to Osteoporosis). Stair training for descending steps/inclines w/o pain.
--- NOTE | 2023-03-16 12:54 | PT.OPPOC ---
Physical, Occupational & Speech Therapy At [facility] Current Diagnoses Other chronic pain (03/16/23) Pain in left knee (03/16/23) Low back pain, unspecified (03/16/23) Other abnormalities of gait and mobility (03/16/23) Visit Care Team Role Provider Type Ronnie Ribera MD Family Provider Non-Staff Primary Care Provider Specialty: Medical Address: [address] [place] [address], [id number] Email: Gregg Plaza DO Attending Provider Physician Referring Provider Specialty: Physiatry Pain Management Address: [address] [place], [address] Email: [email or web address] Plan Of Care PT-OP-T Assessment and Plan Start: 02/20/23 16:43 Freq: Status: Active Protocol: Document 03/16/23 08:00 LRN (Rec: 03/16/23 08:46 LRN [id number]) Physical Therapy Assessment Rehab Potential Rehabilitation Potential Good Evaluation Complexity Number of Personal Factors/Comorbidities 3 or More Number of Body Systems Impaired 4 or More Clinical Presentation at Evaluation Evolving Impairments Impairments Activity Tolerance,Edema, Functional Mobility,Gait,Pain, Posture,ROM,Soft Tissue Mobility Goals Three Impairment Decreased L knee flexion mobility limiting functional squat Impairment L knee pain with descending stairs and ambulating incline/ declines. Short Term Goal (STG) Pt will be able to amb down stairs w/o pain on consistent basis. 03/16/23: No L knee pain for past week w/o pain. STG Duration 04/12/23 03/16/23: MET GOAL Intermediate Goal (LTG) Pt will be able to amb inclines/declines w/o pain. 03/16/23: Pain mainly with declines, a little with incline. LTG Duration 05/27/23 progressing 03/16/23 . Two Impairment L knee and R LE pain limiting ability for prolonged walking Impairment Walking results in L knee pain and occasional R sciatic pain . Short Term Goal (STG) Pt will be educated in proper Body mechanics for ADLs with focus on lifting to eliminate onset of R sciatic pain. STG Duration 04/12/23 (03/16/23: MET GOAL) Intermediate Goal (LTG) Pt will be able to walk 9 holes of golf without back or LE pain. LTG Duration 05/27/23 One Impairment Pt lacks appropriate self care HEP. Short Term Goal (STG) Pt will be educated in self care pain/inflammation management with cold pack and RICE technique. STG Duration 04/12/23 (03/09/23: MET GOAL) Homoeopath Goal (LTG) Pt will be independent in an effective self care HEP for core/L knee strengthening and mobility ex's, and be able to start yoga exercises. 03/09/23: HEP: Hip AD, Ext; knee flex (TBand - [place] issued). 03/12/23: HEP: Fig 4 on L, Piriformis on R. LTG Duration 05/27/23 progressed 03/12/23 Assessment Summary Assessment Insidious onset of L anterior knee joint pain that appears to have resolved over the last week after return to prior functional activities. She has had onset of LBP and shooting pain from LB into the L medial arch of the foot. It was difficult teaching pt neutral spine control of position, and to how to stabilize core during breathing. Pt was not able to fully perform breathing with stable core, but showed some improvement after much training in sup & standing. Further training is needed. Her legs do not appear to have a significant leg length difference; therefore SIJ dysfunction doesn't appear to be a reason for her LE pain. She does have hip ms tightness with indications of possible sacral rotation resulting in L foot pain and occasional LE pain. Poor core stab is probably the reason for some of her LBP as well as poor body mechanics as she is not able to maintain a neutral spine with ADLs; therefore it is recommended that the pt continue skilled physical therapy for pt education, training and strengthening of her core muscles and educate pt in proper posture and body mechanics as well as ROM ex's to her core. Physical Therapy Plan Frequency and Duration Frequency of Treatment 2x/Week Plan of Care Start Date 03/16/23 Plan of Care End Date 05/27/23 Therapeutic Interventions Therapeutic Interventions Joint Mobilizations Modalities Cold Pack/Ice Massage,Electric Stimulation,Hot Packs, Ultrasound Next Visit Focus/Plan Next Note Type Treatment Note Next Visit Plan Assess core strength and issue HEP if needed for sacral dysfunction. Pt education: transfer with equal WBing, and with focus on lifting to eliminate onset of R sciatic pain. Cont strengthening: upright bike-L knee (caution: hx osteoporosis) and start hamstring strengthening. HEP/ROM: Mobility: Trunk flex & rot, hip (ext, IR L/ER R, knee flexion; Sciatic n. glides, postural ex's for kyphosis. Modalities as needed: US to L infrapatellar tendon. Manual: Piriformis PING stretch, MWM with stairs (no mobs due to Osteoporosis). Stair training for descending steps/inclines w/o pain. Plan of Care Dates Plan of Care Start Date 03/16/23 Plan of Care End Date 05/27/23 Electronically Signed by: Windy Hurtado, PT 03/16/23 [id number] If you are in agreement with this Plan of Care, please return a signed and dated copy. I have reviewed this Plan of Care and certify that the skilled therapy services above are required to meet the patient?s needs. Physician Signature Date Printed Name and Credentials Clinical Instructor Signature Printed Name and Credentials
--- NOTE | 2023-03-19 17:51 | PT.OTN ---
Current Diagnoses Other chronic pain (03/19/23) Pain in left knee (03/19/23) Low back pain, unspecified (03/19/23) Other abnormalities of gait and mobility (03/19/23) Physical Therapy Treatment Note PT-OP-A Visit Information Start: 02/20/23 16:43 Freq: Status: Active Protocol: Document 03/19/23 08:04 LRN (Rec: 03/19/23 08:48 LRN [id number]) Out-Patient Physical Therapy Visit Information Visit Information Visit Type Treatment Note Visit Start Time 08:04 Visit Stop Time 08:48 Total Visit Minutes 44 Visit Number 5 Evaluation Information Evaluation Date 02/26/23 Precautions Precautions Osteoporosis. PT-OP-B Current Condition Start: 02/20/23 16:43 Freq: Status: Active Protocol: Document 02/26/23 08:17 LRN (Rec: 02/26/23 09:08 LRN [id number]) Current Condition History of Current Condition Onset Date 7 month ago Current Complaints L knee pain History of Current Condition Back pain on/off depending on what is happening. Has had back/neck pain for past 20 yrs . Sciatic started 15 yrs ago when began playing softball, started as pain in foot due to pulled ms in back and thighs. States back pain is sciatic pain. If lift too much heavy things of 20-25# or more. Knee started to bother her 7 months ago of insidious onset. States it feels like she has hyper extended her knee and had difficulty bending her knee. She has intermittent L knee, infrapatellar pain with walking and worsens with inclines and declines. Up and down stairs she has stiffness and sometimes painful. She has improved with time and no longer has the severe stiffness causing her to amb one step at a time. 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 Treatment Goals Patient/Caregiver Goals Pt goals: Learn ex's to help strengthen to eliminate the pain. -Walk to do 9 holes of golf. -Amb inclines/declines w/o pain. -Amb down stairs w/o pain on consistent basis. -HEP of back ex's. Be able to start yoga. 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 PT-OP-C Subjective Start: 02/20/23 16:43 Freq: Status: Active Protocol: Document 03/19/23 08:04 LRN (Rec: 03/19/23 08:48 LRN [id number]) OP-PT Subjective Patient Comments Patient Comments Saw [facility] Sp[facility] physician yesterday. Was shown arthritis in the back and L knee. Suggested he see a neurologist for back and neck (ocular migraines). Went golfing 18 holes yesterday so stiff. L knee pain rated 0-1/ 10. PT-OP-G Mobility & Gait Start: 02/20/23 16:43 Freq: Status: Active Protocol: Document 02/26/23 08:17 LRN (Rec: 02/26/23 09:08 LRN [id number]) OP Gait Assessment Gait Gait Assistance Required: Independent Assistive Devices Assistive Device None Gait Deviations General Gait Pattern Decreased Stride Length Factors Limiting Gait Function Factors Limiting Gait Function Decreased Activity Tolerance Comments Gait Comments Normal per patient. Stair Climbing Evaluation Comments Stair Climbing Comments Pain on Descending stairs. PT-OP-H Neuro Start: 02/20/23 16:43 Freq: Status: Active Protocol: Document 02/26/23 08:17 LRN (Rec: 02/26/23 09:08 LRN [id number]) Sensation Evaluation Gross Sensation Gross Sensation WNL PT-OP-J Posture/Palpation/Skin Start: 02/20/23 16:43 Freq: Status: Active Protocol: Document 03/16/23 08:00 LRN (Rec: 03/16/23 08:46 LRN [id number]) Palpation Assessment Location Leg lengths Palpation Location ASIS to medial mallelus Palpation Details 82 cm left, 83 cm right. PT-OP-K Range of Motion Start: 02/20/23 16:43 Freq: Status: Active Protocol: Document 03/09/23 11:19 LRN (Rec: 03/09/23 12:20 LRN [id number]) Hip Goniometric Range of Motion Hip Right Passive Testing Position Supine Straight Leg Raise 90 Extension 0 Abduction 30 Internal Rotation 10 External Rotation 75 Left Passive Testing Position Supine Straight Leg Raise 85 Extension 2 Abduction 25 Internal Rotation 30 External Rotation 70 PT-OP-L Special Tests Start: 02/20/23 16:43 Freq: Status: Active Protocol: Document 02/26/23 08:17 LRN (Rec: 02/26/23 09:08 LRN [id number]) Special Tests Lumbar Spine Special Tests Straight Leg Raise Test Results - bilaterally Vertical Spine Loading Test Results - Comments No LBP elicited Knee Special Tests Varus- 25 Degrees Test Results - L knee Valgus- 25 Degrees Test Results - L knee Posterior Draw Test Results - L knee Anterior Draw Test Results - L knee Patellar Grind Test Test Results - L knee Neural Special Tests- Lower Body Sciatic Nerve Tension Test Results + neural tension bilaterally Comments Hamstring tightness PT-OP-M Strength Start: 02/20/23 16:43 Freq: Status: Active Protocol: Document 03/19/23 08:04 LRN (Rec: 03/19/23 08:48 LRN [id number]) Trunk Strength Trunk Manual Muscle Testing Core Stabilization Decreased strength with L pelvic rotation/R trunk rotation. PT-OP-Q Treatments Start: 02/20/23 16:43 Freq: Status: Active Protocol: Document 03/19/23 08:04 LRN (Rec: 03/19/23 08:48 LRN [id number]) Cardio Equipment Bicycle (Upright) Duration (Minutes) 6 Resistance 5 Seat Position 5 Other 70 RPM, Neutral spine training , cuing for rpm 70 or above Therapeutic Exercises Supine Exercises Deep Breathing Supine Exercise Name Breathing holding core stable (chest breathe training) Side bilateral Reps/Minutes 5' standing, 4' supine Comments Pt needed much phys & v cuing with added UE movements Hip ER stretch Supine Exercise Name Fig 4 stretch Side left Reps/Minutes 60 stretch x 1-2 - w/ankle AROM x10, knee ER x10, breaths x 10 Comments Extra time needed to determine max ronni stretch and to learn technique Hip IR stretch Supine Exercise Name Piriformis: 2 positions tried: 1)R ankle over L knee, 2) knee roll inward Side right Reps/Minutes with each x 1: w/ankle AROM, breathing, active stretch Comments Extra time needed to determine max ronni stretch and to learn technique Sitting Exercises Lumbar R rot Sitting Exercise Name Lumbar R rot Reps/Minutes 7' Comments Much attempt to elicit R lumbar rot, but pt not able to perform Standing Exercises Lumbar R rot Standing Exercise Name Strengthening L/S R rot or Pelvic L rot. Side right Reps/Minutes 10' Comments Much phy & v cuing. Had to use table to keep leaning against for stability Self-Care/Home Management Treatment Education Patient Education Home Exercise Program Activities Self-Care/Home Management Activities Issued & reviewed HEP: Trunk rot R/Pelvic rotation L. PT-OP-T Assessment and Plan Start: 02/20/23 16:43 Freq: Status: Active Protocol: Document 03/19/23 08:04 LRN (Rec: 03/19/23 08:48 LRN [id number]) Physical Therapy Assessment Goals Three Impairment Decreased L knee flexion mobility limiting functional squat Impairment L knee pain with descending stairs and ambulating incline/ declines. Short Term Goal (STG) Pt will be able to amb down stairs w/o pain on consistent basis. 03/16/23: No L knee pain for past week w/o pain. STG Duration 04/12/23 03/16/23: MET GOAL Senior Care Goal (LTG) Pt will be able to amb inclines/declines w/o pain. 03/16/23: Pain mainly with declines, a little with incline. LTG Duration 05/27/23 progressing 03/16/23 . Two Impairment L knee and R LE pain limiting ability for prolonged walking Impairment Walking results in L knee pain and occasional R sciatic pain . Short Term Goal (STG) Pt will be educated in proper Body mechanics for ADLs with focus on lifting to eliminate onset of R sciatic pain. STG Duration 04/12/23 (03/16/23: MET GOAL) Senior Care Goal (LTG) Pt will be able to walk 9 holes of golf without back or LE pain. 03/19/23: Pt walked 18 holes of golf with pain on decline ( pain rated 0-1/10), but mostly stiffness in the L knee. LTG Duration 05/27/23 progressing 03/19/23 One Impairment Pt lacks appropriate self care HEP. Short Term Goal (STG) Pt will be educated in self care pain/inflammation management with cold pack and RICE technique. STG Duration 04/12/23 (03/09/23: MET GOAL) Senior Care Goal (LTG) Pt will be independent in an effective self care HEP for core/L knee strengthening and mobility ex's, and be able to start yoga exercises. 03/09/23: HEP: Hip AD, Ext; knee flex (TBand - habematolel green issued). 03/12/23: HEP: Fig 4 on L, Piriformis on R. 03/19/23: HEP: Pelvic L rot/ Trunk R rot strengthening LTG Duration 05/27/23 progressed 03/19/23 Assessment Summary Assessment L knee pain possibly inferior patellar busitis or from LB. Pt now primarily having L LB/ hip pain that may be sciatic in nature. Pain with Pt returned to 18 golf with stiffness at the L knee and pain 0-1/10 walking declines, possibly from weakness of hamstrings. Full L knee flexion AROM in supine. Physical Therapy Plan Frequency and Duration Frequency of Treatment 2x/Week Plan of Care Start Date 03/16/23 Plan of Care End Date 05/27/23 Next Visit Focus/Plan Next Note Type Treatment Note Next Visit Plan Assess sacral dysfunction. Monitor for equal WBing in standing and focus on strengthening hamstrings for L knee pain on declines. Pt education: transfer with equal WBing Cont strengthening: progress upright bike tolerance-L knee (caution: hx osteoporosis), Start hamstring strengthening. HEP/ROM: Mobility: Trunk flex & rot, hip (ext, knee flexion ; Sciatic n. glides, postural ex's for kyphosis. Modalities as needed: US to L infrapatellar tendon. Manual: Piriformis PING stretch, Gait training inclines w/o pain (?MWM).
--- NOTE | 2023-03-26 08:48 | PT.OTN ---
Current Diagnoses Other chronic pain (03/26/23) Pain in left knee (03/26/23) Low back pain, unspecified (03/26/23) Other abnormalities of gait and mobility (03/26/23) Physical Therapy Treatment Note PT-OP-A Visit Information Start: 02/20/23 16:43 Freq: Status: Active Protocol: Document 03/26/23 08:01 LRN (Rec: 03/26/23 08:46 LRN [id number]) Out-Patient Physical Therapy Visit Information Visit Information Visit Type Treatment Note Visit Start Time 08:01 Visit Stop Time 08:43 Total Visit Minutes 42 Visit Number 6 Evaluation Information Evaluation Date 02/26/23 Precautions Precautions Osteoporosis. PT-OP-B Current Condition Start: 02/20/23 16:43 Freq: Status: Active Protocol: Document 02/26/23 08:17 LRN (Rec: 02/26/23 09:08 LRN [id number]) Current Condition History of Current Condition Onset Date 7 month ago Current Complaints L knee pain History of Current Condition Back pain on/off depending on what is happening. Has had back/neck pain for past 20 yrs . Sciatic started 15 yrs ago when began playing softball, started as pain in foot due to pulled ms in back and thighs. States back pain is sciatic pain. If lift too much heavy things of 20-25# or more. Knee started to bother her 7 months ago of insidious onset. States it feels like she has hyper extended her knee and had difficulty bending her knee. She has intermittent L knee, infrapatellar pain with walking and worsens with inclines and declines. Up and down stairs she has stiffness and sometimes painful. She has improved with time and no longer has the severe stiffness causing her to amb one step at a time. 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 Treatment Goals Patient/Caregiver Goals Pt goals: Learn ex's to help strengthen to eliminate the pain. -Walk to do 9 holes of golf. -Amb inclines/declines w/o pain. -Amb down stairs w/o pain on consistent basis. -HEP of back ex's. Be able to start yoga. 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 PT-OP-C Subjective Start: 02/20/23 16:43 Freq: Status: Active Protocol: Document 03/26/23 08:01 LRN (Rec: 03/26/23 08:46 LRN [id number]) OP-PT Subjective Patient Comments Patient Comments States she walked 18 holes of golf, back was okay but the R knee okay but unstable on uneven ground. PT-OP-G Mobility & Gait Start: 02/20/23 16:43 Freq: Status: Active Protocol: Document 02/26/23 08:17 LRN (Rec: 02/26/23 09:08 LRN [id number]) OP Gait Assessment Gait Gait Assistance Required: Independent Assistive Devices Assistive Device None Gait Deviations General Gait Pattern Decreased Stride Length Factors Limiting Gait Function Factors Limiting Gait Function Decreased Activity Tolerance Comments Gait Comments Normal per patient. Stair Climbing Evaluation Comments Stair Climbing Comments Pain on Descending stairs. PT-OP-H Neuro Start: 02/20/23 16:43 Freq: Status: Active Protocol: Document 02/26/23 08:17 LRN (Rec: 02/26/23 09:08 LRN [id number]) Sensation Evaluation Gross Sensation Gross Sensation WNL PT-OP-J Posture/Palpation/Skin Start: 02/20/23 16:43 Freq: Status: Active Protocol: Document 03/16/23 08:00 LRN (Rec: 03/16/23 08:46 LRN [id number]) Palpation Assessment Location Leg lengths Palpation Location ASIS to medial mallelus Palpation Details 82 cm left, 83 cm right. PT-OP-K Range of Motion Start: 02/20/23 16:43 Freq: Status: Active Protocol: Document 03/26/23 08:01 LRN (Rec: 03/26/23 08:46 LRN [id number]) Hip Goniometric Range of Motion Hip Right Passive Testing Position Supine Internal Rotation 20 External Rotation 75 Left Passive Testing Position Supine Internal Rotation 30 External Rotation 75 PT-OP-L Special Tests Start: 02/20/23 16:43 Freq: Status: Active Protocol: Document 02/26/23 08:17 LRN (Rec: 02/26/23 09:08 LRN [id number]) Special Tests Lumbar Spine Special Tests Straight Leg Raise Test Results - bilaterally Vertical Spine Loading Test Results - Comments No LBP elicited Knee Special Tests Varus- 25 Degrees Test Results - L knee Valgus- 25 Degrees Test Results - L knee Posterior Draw Test Results - L knee Anterior Draw Test Results - L knee Patellar Grind Test Test Results - L knee Neural Special Tests- Lower Body Sciatic Nerve Tension Test Results + neural tension bilaterally Comments Hamstring tightness PT-OP-M Strength Start: 02/20/23 16:43 Freq: Status: Active Protocol: Document 03/19/23 08:04 LRN (Rec: 03/19/23 08:48 LRN [id number]) Trunk Strength Trunk Manual Muscle Testing Core Stabilization Decreased strength with L pelvic rotation/R trunk rotation. PT-OP-Q Treatments Start: 02/20/23 16:43 Freq: Status: Active Protocol: Document 03/26/23 08:01 LRN (Rec: 03/26/23 08:46 LRN [id number]) Cardio Equipment Bicycle (Upright) Duration (Minutes) 8 Resistance 5 > 8 Seat Position 5 Other 70 RPM, Neutral spine training , cuing for rpm 70 or above Therapeutic Exercises Supine Exercises Deep Breathing Supine Exercise Name Breathing holding core stable (chest breathe training) Side bilateral Reps/Minutes 5' standing, 4' supine Comments Pt needed much phys & v cuing with added UE movements Hip ER stretch Supine Exercise Name Fig 4 stretch Side left Reps/Minutes 60 stretch x 1-2 - w/ankle AROM x10, knee ER x10, breaths x 10 Comments Extra time needed to determine max ronni stretch and to learn technique Hip IR stretch Supine Exercise Name Piriformis: 2 positions tried: 1)R ankle over L knee, 2) knee roll inward Side right Reps/Minutes with each x 1: w/ankle AROM, breathing, active stretch Comments Extra time needed to determine max ronni stretch and to learn technique Sidelying Exercises TFL stretch Sidelying Exercise Name TFL stretch Side bilateral Reps/Minutes 60 SH x 1 each Comments Extra time taken to determine best tolerated stretch Core stab w/breathe Sidelying Exercise Name Core stab with breathing Reps/Minutes 2' Comments PHys & v Cuing to keep core tight with breath Standing Exercises TFL stretch Standing Exercise Name TFL stretch Reps/Minutes 1x each Comments Extra time taken to determine best tolerated stretch Other Exercises Hands/knees core stab w/breath Other Exercise Name Hands/knees core stab w/breath Comments PHys & v Cuing to keep core tight with breath Neuro Re-Education Treatment Balance Activities Stagger stance Details Stagger stance wgt shift Surface folded over mat SLS on double mat Details SLS on folded over mat Reps/Duration 2' Comments L SLS more difficult PT-OP-T Assessment and Plan Start: 02/20/23 16:43 Freq: Status: Active Protocol: Document 03/26/23 08:01 LRN (Rec: 03/26/23 08:46 LRN [id number]) Physical Therapy Assessment Goals Three Impairment Decreased L knee flexion mobility limiting functional squat Impairment L knee pain with descending stairs and ambulating incline/ declines. Short Term Goal (STG) Pt will be able to amb down stairs w/o pain on consistent basis. 03/16/23: No L knee pain for past week w/o pain. STG Duration 04/12/23 03/16/23: MET GOAL Shelter Goal (LTG) Pt will be able to amb inclines/declines w/o pain. 03/16/23: Pain mainly with declines, a little with incline. 03/26/23: Soreness of L knee under kneecap with inclines and declines. LTG Duration 05/27/23 progressing . Two Impairment L knee and R LE pain limiting ability for prolonged walking Impairment Walking results in L knee pain and occasional R sciatic pain . Short Term Goal (STG) Pt will be educated in proper Body mechanics for ADLs with focus on lifting to eliminate onset of R sciatic pain. STG Duration 04/12/23 (03/16/23: MET GOAL) Shelter Goal (LTG) Pt will be able to walk 9 holes of golf without back or LE pain. 03/19/23: Pt walked 18 holes of golf with pain on decline ( pain rated 0-1/10), but mostly stiffness in the L knee. LTG Duration 05/27/23 progressing 03/19/23 One Impairment Pt lacks appropriate self care HEP. Short Term Goal (STG) Pt will be educated in self care pain/inflammation management with cold pack and RICE technique. STG Duration 04/12/23 (03/09/23: MET GOAL) Emergency Room Specialist Goal (LTG) Pt will be independent in an effective self care HEP for core/L knee strengthening and mobility ex's, and be able to start yoga exercises. 03/09/23: HEP: Hip AD, Ext; knee flex (TBand - [place] issued). 03/12/23: HEP: Fig 4 on L, Piriformis on R. 03/19/23: HEP: Pelvic L rot/ Trunk R rot strengthening LTG Duration 05/27/23 progressed 03/19/23 Progress Towards Goals Progress Comments Improved R hip mobility with ER now equal to L hip ER. Assessment Summary Assessment Sacrum is test evaluator at L ROGELIO and R sacral sulcus with tension at L upper gluteals. Improved L hip ER, but R hip IR remains tighter than L. Pt is now able to amb inclines/ declines with only soreness, no L knee pain. Physical Therapy Plan Frequency and Duration Frequency of Treatment 2x/Week Plan of Care Start Date 03/16/23 Plan of Care End Date 05/27/23 Next Visit Focus/Plan Next Note Type Treatment Note Next Visit Plan After next treatment, possible DC or pt to return after vactation for reassessment/ possible DC. Monitor for sacral dysfunction and equal WBing in standing. Focus strengthening hamstrings for L knee pain on declines. Pt education: transfer with equal WBing Cont strengthening: progress upright bike tolerance-L knee (caution: hx osteoporosis), Start hamstring strengthening. HEP/ROM: Mobility: Trunk flex & rot, hip (ext, knee flexion ; Sciatic n. glides, postural ex's for kyphosis. Modalities as needed: US to L infrapatellar tendon. Manual: Piriformis PING stretch, Gait training inclines w/o pain (?MWM).
--- NOTE | 2023-06-25 16:27 | PT.OPDS ---
Current Diagnoses Other chronic pain (03/26/23) Pain in left knee (03/26/23) Low back pain, unspecified (03/26/23) Other abnormalities of gait and mobility (03/26/23) Visit Care Team Role Provider Type Ronnie Ribera MD Family Provider Non-Staff Primary Care Provider Specialty: Medical Address: [address] [place], [address] Email: Gregg Plaza DO Attending Provider Physician Referring Provider Specialty: Interventional Radiology Physiatry Pain Management Address: [address] [place], [address] Email: [email or web address] Visit Number Visit Number 6 Discharge Summary PT-OP-B Current Condition Start: 02/20/23 16:43 Freq: Status: Active Protocol: Document 02/26/23 08:17 LRN (Rec: 02/26/23 09:08 LRN [id number]) Current Condition History of Current Condition Onset Date 7 month ago Current Complaints L knee pain History of Current Condition Back pain on/off depending on what is happening. Has had back/neck pain for past 20 yrs . Sciatic started 15 yrs ago when began playing softball, started as pain in foot due to pulled ms in back and thighs. States back pain is sciatic pain. If lift too much heavy things of 20-25# or more. Knee started to bother her 7 months ago of insidious onset. States it feels like she has hyper extended her knee and had difficulty bending her knee. She has intermittent L knee, infrapatellar pain with walking and worsens with inclines and declines. Up and down stairs she has stiffness and sometimes painful. She has improved with time and no longer has the severe stiffness causing her to amb one step at a time. 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 Treatment Goals Patient/Caregiver Goals Pt goals: Learn ex's to help strengthen to eliminate the pain. -Walk to do 9 holes of golf. -Amb inclines/declines w/o pain. -Amb down stairs w/o pain on consistent basis. -HEP of back ex's. Be able to start yoga. 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 PT-OP-C Subjective Start: 02/20/23 16:43 Freq: Status: Active Protocol: Document 03/26/23 08:01 LRN (Rec: 03/26/23 08:46 LRN [id number]) OP-PT Subjective Patient Comments Patient Comments States she walked 18 holes of golf, back was okay but the R knee okay but unstable on uneven ground. PT-OP-G Mobility & Gait Start: 02/20/23 16:43 Freq: Status: Active Protocol: Document 02/26/23 08:17 LRN (Rec: 02/26/23 09:08 LRN [id number]) OP Gait Assessment Gait Gait Assistance Required: Independent Assistive Devices Assistive Device None Gait Deviations General Gait Pattern Decreased Stride Length Factors Limiting Gait Function Factors Limiting Gait Function Decreased Activity Tolerance Comments Gait Comments Normal per patient. Stair Climbing Evaluation Comments Stair Climbing Comments Pain on Descending stairs. PT-OP-H Neuro Start: 02/20/23 16:43 Freq: Status: Active Protocol: Document 02/26/23 08:17 LRN (Rec: 02/26/23 09:08 LRN [id number]) Sensation Evaluation Gross Sensation Gross Sensation WNL PT-OP-J Posture/Palpation/Skin Start: 02/20/23 16:43 Freq: Status: Active Protocol: Document 03/16/23 08:00 LRN (Rec: 03/16/23 08:46 LRN [id number]) Palpation Assessment Location Leg lengths Palpation Location ASIS to medial mallelus Palpation Details 82 cm left, 83 cm right. PT-OP-K Range of Motion Start: 02/20/23 16:43 Freq: Status: Active Protocol: Document 03/26/23 08:01 LRN (Rec: 03/26/23 08:46 LRN [id number]) Hip Goniometric Range of Motion Hip Right Passive Testing Position Supine Internal Rotation 20 External Rotation 75 Left Passive Testing Position Supine Internal Rotation 30 External Rotation 75 PT-OP-L Special Tests Start: 02/20/23 16:43 Freq: Status: Active Protocol: Document 02/26/23 08:17 LRN (Rec: 02/26/23 09:08 LRN [id number]) Special Tests Lumbar Spine Special Tests Straight Leg Raise Test Results - bilaterally Vertical Spine Loading Test Results - Comments No LBP elicited Knee Special Tests Varus- 25 Degrees Test Results - L knee Valgus- 25 Degrees Test Results - L knee Posterior Draw Test Results - L knee Anterior Draw Test Results - L knee Patellar Grind Test Test Results - L knee Neural Special Tests- Lower Body Sciatic Nerve Tension Test Results + neural tension bilaterally Comments Hamstring tightness PT-OP-M Strength Start: 02/20/23 16:43 Freq: Status: Active Protocol: Document 03/19/23 08:04 LRN (Rec: 03/19/23 08:48 LRN [id number]) Trunk Strength Trunk Manual Muscle Testing Core Stabilization Decreased strength with L pelvic rotation/R trunk rotation. PT-OP-T Assessment and Plan Start: 02/20/23 16:43 Freq: Status: Active Protocol: Document 06/25/23 16:19 LRN (Rec: 06/25/23 16:27 LRN [id number]) Physical Therapy Assessment Goals Three Impairment Decreased L knee flexion mobility limiting functional squat Impairment L knee pain with descending stairs and ambulating incline/ declines. Short Term Goal (STG) Pt will be able to amb down stairs w/o pain on consistent basis. 03/16/23: No L knee pain for past week w/o pain. STG Duration 04/12/23 03/16/23: MET GOAL Final Assembler Boat Goal (LTG) Pt will be able to amb inclines/declines w/o pain. 03/16/23: Pain mainly with declines, a little with incline. 03/26/23: Soreness of L knee under kneecap with inclines and declines. LTG Duration 05/27/23 progressing . Two Impairment L knee and R LE pain limiting ability for prolonged walking Impairment Walking results in L knee pain and occasional R sciatic pain . Short Term Goal (STG) Pt will be educated in proper Body mechanics for ADLs with focus on lifting to eliminate onset of R sciatic pain. STG Duration 04/12/23 (03/16/23: MET GOAL) Intermediate Goal (LTG) Pt will be able to walk 9 holes of golf without back or LE pain. 03/19/23: Pt walked 18 holes of golf with pain on decline ( pain rated 0-1/10), but mostly stiffness in the L knee. LTG Duration 05/27/23 progressing 03/19/23 One Impairment Pt lacks appropriate self care HEP. Short Term Goal (STG) Pt will be educated in self care pain/inflammation management with cold pack and RICE technique. STG Duration 04/12/23 (03/09/23: MET GOAL) Intermediate Goal (LTG) Pt will be independent in an effective self care HEP for core/L knee strengthening and mobility ex's, and be able to start yoga exercises. 03/09/23: HEP: Hip AD, Ext; knee flex (TBand - [place] issued). 03/12/23: HEP: Fig 4 on L, Piriformis on R. 03/19/23: HEP: Pelvic L rot/ Trunk R rot strengthening LTG Duration 05/27/23 progressed 03/19/23 Assessment Summary Assessment Pt was seen for 5 treatment visits from 02/26/23 to 03/26/23 . Pt was gone for 2 weeks in April, then canceled her remaining appts in April. The pt did not call to reschedule and her plan of care has now . The pt made good progress with a decrease in L knee pain with stair ambulation and walking for golf. She was educated in proper body mechanics, self care for pain management and exercises appropriate for her physical status at time of issuance. She is no longer attending therapy; therefore the pt is being discharged from physical therapy. Physical Therapy Plan Discharge Physical Therapy Discharge Reasons No Longer Attending PT Discharge Comments Thank you for your referral.
== END 2023-06-28 12:29 | disposition home or self-care (01) ==
LOC: PHYS 08:00
PROVIDERS: Family Provider Family Medicine; PCP Family Medicine; Referring Provider Physical Medicine & Rehabilitation; Visit Provider Physical Medicine & Rehabilitation
DX: M25.562 Pain in left knee (principal); M54.50 Low back pain, unspecified; G89.29 Other chronic pain; R26.89 Other abnormalities of gait and mobility
CPT/HCPCS: 97110; 97140; 97162; 97535

== ENCOUNTER → 2024-09-04 11:23 | Outpatient (CLI) | payer MEDICARE, SELFPAY ==
[2022-11-18 17:52] VITALS: BMI 24.7
[2024-09-04 12:56] LABS: Add Manual Diff / Slide Review NO; Basophils Absolute Auto 0 /uL (0-100); Basophils Percent Auto 0.4 % (0-2); Eosinophils Absolute Auto 0 /uL (0-450); Eosinophils Percent Auto 0.3 % (2-4); Hematocrit 38.9 % (36-46); Hemoglobin 13.3 g/dL (12.0-16.0); Lymphocytes Absolute Auto 1700 /uL (1100-4500); Lymphocytes Percent Auto 21.2 % (25-40); Mean Corpuscular HGB Conc 34.2 % (30-36); Mean Corpuscular Hemoglobin 29.6 PG (26-34); Mean Corpuscular Volume 86.7 fL (80-100); Monocytes Absolute Auto 400 /uL (0-900); Monocytes Percent Auto 5.2 % (3-14); Neutrophils Absolute Auto 5900 /uL (1500-7000); Neutrophils Percent Auto 72.9 % (50-75); Platelet Count 366 X10^3/uL (150-400); Red Blood Cell Count 4.49 X10^6/uL (4.0-5.2); Red Cell Distribution Width 13.6 % (11.6-14.8); White Blood Cell Count 8.1 X10^3/uL (4.5-11.0)
[2024-09-04 13:05] LABS: Hemoglobin A1C% w Est Avg Glu 5.8 % (4.0-6.0)
[2024-09-04 13:27] LABS: Alanine Aminotransferase 60 IU/L (<35); Albumin 4.3 g/dL (3.5-5.0); Albumin Globulin Ratio 1.7 (1.0-2.8); Alkaline Phosphatase 155 U/L (38-126); Aspartate Aminotransferase 35 IU/L (14-36); BUN Creatinine Ratio 18.2 (6-22); Bilirubin Total 0.4 mg/dL (0.2-1.3); Blood Urea Nitrogen 10 mg/dL (7-17); Calcium 9.7 mg/dL (8.4-10.2); Carbon Dioxide 25 mmol/L (22-32); Chloride 99 mmol/L (98-107); Cholesterol 192 mg/dL (140-199); Estimated Glomerular Filt Rate > 60 mL/min (>60); Globulin 2.6 g/dL (1.7-4.1); Glucose 84 mg/dL (80-110); HDL Cholesterol 51 mg/dL (40-60); HEMOLYSIS < 15 (0-50); LDL Cholesterol Calculated 116 mg/dL (<100); Potassium 4.8 mmol/L (3.4-5.1); Sodium 134 mmol/L (137-145); Total Protein 6.9 g/dL (6.3-8.2); Triglycerides 127 mg/dL (35-150)
[2024-09-04 13:48] LABS: Thyroid Stimulating Hormone 1.46 uIU/mL (0.47-4.68)
== END ==
LOC: LAB 11:25
PROVIDERS: Family Provider Family Medicine; PCP Student in an Organized Health Care Education/Training Program; Referring Provider Student in an Organized Health Care Education/Training Program; Visit Provider Student in an Organized Health Care Education/Training Program
DX: Z00.00 Encounter for general adult medical examination without abnormal findings (principal); K27.9 Peptic ulcer, site unspecified, unspecified as acute or chronic, without hemorrhage or perforation; N95.1 Menopausal and female climacteric states; R09.81 Nasal congestion; J01.90 Acute sinusitis, unspecified; J02.9 Acute pharyngitis, unspecified
CPT/HCPCS: 36415; 80053; 80061; 83036; 84443; 85025

== ENCOUNTER → 2024-09-27 13:56 | Outpatient (CLI) | payer MEDICARE, SELFPAY ==
[2022-11-18 17:52] VITALS: BMI 24.7
--- NOTE | 2024-09-27 | DI.US.S_ITS ---
PROCEDURE: US ABDOMEN LIMITED INDICATIONS: Elevation of levels of liver transaminase levels TECHNIQUE: Real-time focused scanning was performed of the abdomen, with image documentation. COMPARISON: [facility], CT, CT CHEST ABD PEL W CON, 11/24/2022, 16:23. [facility], US, US ABDOMEN COMPLETE, 12/08/2022, 13:58. FINDINGS: The liver is normal in size and demonstrates no suspicious lesions. The liver demonstrates overall normal echogenicity. Within the left liver, there is 18 mm simple cyst, as previously demonstrated. No findings of gallstones or sludge are seen. The gallbladder wall is not thickened, measuring 3 mm or less. No specific pericholecystic fluid is seen. The sonographic Gonzalez sign is negative. There is no biliary dilatation, the common bile duct measures 4 mm. No significant pancreatic abnormality is seen on these images. The visualized right kidney is unremarkable, without hydronephrosis. IMPRESSION: No significant liver abnormality is seen. Note is made of a left liver cyst, as previously seen. Dictated by: Srinivasan Higginbotham M.D. on 09/27/2024 at 15:51 Approved by: Srinivasan Higginbotham M.D. on 09/27/2024 at 15:54
== END ==
PROVIDERS: Family Provider Family Medicine; PCP Student in an Organized Health Care Education/Training Program; Referring Provider Student in an Organized Health Care Education/Training Program; Visit Provider Student in an Organized Health Care Education/Training Program
DX: K76.89 Other specified diseases of liver (principal); R74.01 Elevation of levels of liver transaminase levels
CPT/HCPCS: 76705